=== PATIENT | female | born 1950 | race Caucasian/White ===

== ENCOUNTER 2017-01-13 09:29 | Outpatient (CLI) | payer MEDICARE, OTHER ==
--- NOTE | 2017-02-01 18:37 | MMO ---
BILATERAL SCREENING MAMMOGRAM: DATE: 01/13/2017 COMPARISON: No prior comparisons available. Interpreted as a baseline exam. The exam is interpreted with the assistance of computer-aided detection. FINDINGS: There is heterogeneously dense breast parenchyma bilaterally which limits sensitivity of mammography . There are benign-appearing calcifications bilaterally. No evidence of a dominant mass, suspiciou s clustering of microcalcifications, or architectural distortion. IMPRESSION: BIRADS 2 - Benign findings. Annual screening mammography recommended. POS: ARIEL
== END 2017-01-13 09:30 | disposition home or self-care (01) ==
LOC: MAMMO 09:29
PROVIDERS: ATTEND Family Medicine
DX: Z12.31 Encounter for screening mammogram for malignant neoplasm of breast (principal)
CPT/HCPCS: 77067; G0202

== ENCOUNTER 2017-02-14 22:24 | Inpatient (IN) | payer MEDICARE, OTHER ==
[2017-02-14] MEDS ORDERED: Pantoprazole 40 MG VIAL ONE ×2 (23:23→23:28)
[2017-02-14 23:31] LABS: #Basophils 0.1 thou/uL (0.0-0.2); #Eosinphils 0.2 thou/uL (0.0-0.7); #Lymphocytes 2.8 thou/uL (1.20-3.40); #Monocytes 0.9 thou/uL (0.11-0.59); #Neutrophils 7.6 thou/uL (1.40-6.50); %Basophils 0.8 % (0.0-1.0); %Eosinophils 1.6 % (0.0-10.0); %Lymphocytes 24.5 % (21.0-51.0); %Monocytes 7.6 % (0.0-10.0); Hematocrit 41.2 % (36.0-47.0); Mean Platelet Volume 7.2 fL (7.4-10.4); Red Blood Cell (RBC) Count 4.23 mill/uL (4.20-5.40); White Blood Cell (WBC) Count 11.6 thou/uL (4.8-10.8)
[2017-02-14 23:37] LABS: PTT 27.1 SEC (22.9-36.1); Prothrombin Time 14.1 SEC (12.0-14.7)
[2017-02-14 23:38] LABS: Anion Gap 9 mmol/L (-14-95); Lactate 2.07 mmol/L (0.50-2.20); POC Est. GFR-MDRD-African-Amer Greater than 60 (2-60); POC Estimated GFR-MDRD Greater than 60 (2-60); T. Carbon Dioxide 26.7 mmol/L (1.0-85.0); pH (Venous) 7.517 (7.35-7.45); vO2 Saturation-calc 99.4 % (0.0-100.0)
[2017-02-14] MEDS ORDERED: Pantoprazole 80 MG, Admixture Fee 1 EACH in Sodium Chloride 0.9% 100 ML IVP SCH (23:45)
[2017-02-14 23:54] LABS: ALT (SGPT) 22 U/L (8-55); AST (SGOT) 21 U/L (5-34); Alkaline Phosphatase 79 U/L (40-150); Anion Gap 14 mmol/L (10-20); BUN (Urea Nitrogen) 54 mg/dL (9.8-20.1); Bilirubin, Total 0.5 mg/dL (0.2-1.2); CK (CPK) 53 U/L (29-168); Calc. Creatinine Clearance 0 mL/min (70-130); Calcium 8.9 mg/dL (7.8-10.44); Carbon Dioxide 24 mmol/L (23-31); Chloride 104 mmol/L (98-107); Estimated GFR-MDRD 73; Lipase 12 U/L (8-78); Protein, Total 5.6 g/dL (6.0-8.3)
[2017-02-14 23:58] LABS: Troponin I Less than 0.010 ng/mL (< 0.028)
--- NOTE | 2017-02-15 02:05 | HP ---
PRIMARY CARE PHYSICIAN: Derek Yee M.D. CHIEF COMPLAINT: Black stool and near syncope. HISTORY OF PRESENT ILLNESS: This is a 66-year-old female patient with a history of polycythemia vera, hypertension, history of gastric ulcer 9-10 years ago, who presented to the emergency department tonight with complaints of one episode of severe dark black stool and near syncope in the ER as well as episode of hypotension down to 60 systolic in the emergency department. The patient states that she has been in her usual state of health until this evening when she had the episode of dark black stool. She admitted to some lightheadedness, but she has been feeling more anxious. She states that she has had on and off episodes of shortness of breath for the past several months, but definitely felt worse tonight. She called the answering service and she was instructed to go to the emergency department for evaluation. In the ER during her evaluation, she was found initially to be severely hypotensive. She had an episode, where her blood pressure dropped again to 60. She was given a liter of fluids emergently, which brought her blood pressure back up to the normal range. GI was consulted, notified and now, she is being admitted for further evaluation and treatment. PAST MEDICAL HISTORY: Hypertension, polycythemia vera, history of GI bleed 9- 10 years ago requiring gastric surgery. She is unsure what type of surgery was performed. MEDICATIONS: Include atenolol and hydrochlorothiazide, hydroxyurea 500mg ALLERGIES: PENICILLIN and SULFA. PAST SURGICAL HISTORY: Gastric ulcer repair, hysterectomy. FAMILY HISTORY: Mother with Parkinson disease and father with heart disease and possible aneurysm. SOCIAL HISTORY: She is with children. She sells cosmetics for living. No smoking, no alcohol. Rare caffeine. She states that she stopped all anti- inflammatories 9-10 years ago when she had the gastric ulcer in the past. REVIEW OF SYSTEMS: As per the history of present illness. General: She denies any recent fevers, chills, or recent illness. HEENT: Denies headache, visual or hearing changes. Cardiac: Denies chest pain, shortness of breath or palpitations. Pulmonary: Denies cough or hemoptysis. Gastrointestinal: As per the history of present illness. She does have some abdominal pain, but minimum. Genitourinary: Denies dysuria or hematuria. Neurologic: No weakness. She did have a near syncopal episode here in the ER, but did not pass out. No seizures. Musculoskeletal: Denies joint pain. PHYSICAL EXAMINATION: VITAL SIGNS: She is afebrile, heart rate 80-90, blood pressure is now 130s over 70-80, have had an episode where she was in the 60s/40s, respirations 18 and comfortable. GENERAL: She is awake and alert. She is anxious and pale but in no acute distress. She does have noticeable smell of melena.Mucosa is moist. NECK: Supple. HEART: Regular rate and rhythm. LUNGS: Clear. ABDOMEN: Soft, nontender, nondistended. NEUROLOGIC: CN 2-12 are intact, she moves all extremities. No focal deficits. EXTREMITIES: With no edema. LABORATORY AND X-RAY FINDINGS: White blood cell count 71879, hemoglobin and hematocrit 13.5 and 41.2, but her baseline is 16-20 in her hemoglobin, and 50- 62 in her hematocrit, platelets are 498, PT, PTT 14 and 27.1. ABG with pH of 7.517, pCO2 of 31.7, pO2 of 134. Sodium 138, potassium 4.4, chloride 104, CO2 of 24, BUN and creatinine 54 and 0.79. Serum glucose of 122, albumin of 3.6. ASSESSMENT AND PLAN: This is a 66-year-old female patient with a history of polycythemia vera, hypertension, and passes remote history of gastric ulcer requiring as surgical repair 9-10 years ago, now presents with symptoms consistent with the upper GI bleed with melena and hypotension. She was resuscitated in the emergency room and is stable at this point. She is being admitted to intensive care unit for further monitoring. 1. Upper gastrointestinal bleed. Dr. Ann is aware of the patient here and we will decide on further course of action, a possible esophagogastroduodenoscopy later this morning. 2. Hypotension. We will continue to support with intravenous fluids and monitor closely. 3. Polycythemia vera. We will monitor her hemoglobin and hematocrit every 2 hours through the night. 4. Gastrointestinal protection with Protonix IV 40 mg b.i.d. 5. Patient and son are explained the seriousness of the situation and they are aware. [facility]
[2017-02-15 02:48] LABS: Hematocrit 36.3 % (36.0-47.0)
[2017-02-15 03:28] LABS: #Basophils 0.1 thou/uL (0.0-0.2); #Eosinphils 0.1 thou/uL (0.0-0.7); #Lymphocytes 1.7 thou/uL (1.20-3.40); #Monocytes 0.5 thou/uL (0.11-0.59); #Neutrophils 11.5 thou/uL (1.40-6.50); %Basophils 0.6 % (0.0-1.0); %Eosinophils 0.7 % (0.0-10.0); %Lymphocytes 11.9 % (21.0-51.0); %Monocytes 3.6 % (0.0-10.0); Mean Platelet Volume 7.3 fL (7.4-10.4); White Blood Cell (WBC) Count 13.9 thou/uL (4.8-10.8)
[2017-02-15 03:45] LABS: ALT (SGPT) 18 U/L (8-55); AST (SGOT) 18 U/L (5-34); Alkaline Phosphatase 71 U/L (40-150); Anion Gap 12 mmol/L (10-20); BUN (Urea Nitrogen) 50 mg/dL (9.8-20.1); Bilirubin, Total 0.6 mg/dL (0.2-1.2); Calc. Creatinine Clearance 0 mL/min (70-130); Calcium 7.8 mg/dL (7.8-10.44); Carbon Dioxide 21 mmol/L (23-31); Chloride 108 mmol/L (98-107); Estimated GFR-MDRD 86; Globulin 1.9 g/dL (2.4-3.5); Protein, Total 5.1 g/dL (6.0-8.3)
[2017-02-15] MEDS: Sodium Chloride 0.9% 1,000 ML IV SCH ×3 (04:13→18:11)
[2017-02-15 04:21] VITALS: BMI 25.4
[2017-02-15] MEDS ORDERED: Fentanyl 100 MCG/2 ML VIAL ONE (08:42)
[2017-02-15] MEDS ORDERED: Propofol 200 MG/20 ML VIAL ONE (08:50)
[2017-02-15] MEDS ORDERED: Lidocaine 1% PF 5 ML VIAL ONE (08:50)
[2017-02-15] MEDS ORDERED: FLU VACC TS2017-18 (>65YR) 0.5 ML SYRINGE IM ONE (09:00)
[2017-02-15] MEDS: Pantoprazole 40 MG VIAL IVP SCH ×2 (09:29→21:13)
[2017-02-15 09:39] LABS: Hematocrit 32.6 % (36.0-47.0)
[2017-02-15] MEDS: Ondansetron HCl/PF 4 MG/2 ML Vial IVP PRN (10:16)
--- NOTE | 2017-02-15 10:26 | CON ---
DATE OF CONSULTATION: 02/15/2017 HISTORY OF PRESENT ILLNESS: Ms. Lee is a 66-year-old female who was admitted last night for suspe cted GI bleed. She reports around 5 yesterday she was at work and had a bowel movement which was me lenic. She subsequently had 5 to 6 dark black stools. She came to the emergency room around 10:30. There she described having problems with a syncopal episode at home. She denied any abdominal renzo n. She was admitted to the ICU. Her last bowel movement was a little bit maroon, was about 150 mL per the nurse. The patient denies any abdominal pain. She reports several years ago she presented with severe abdominal pain and was found to have a perforated ulcer. This was reportedly related to ibuprofen which she took for right knee pain from a meniscus injury. Presently she takes ibuprofen periodically, but not on a regular basis. She is also on hydroxyurea for polycythemia vera, atenol ol for hypertension, hydrochlorothiazide for hypertension. On arrival to the hospital her blood pre ssure is 110/69, pulse was 72, it dropped to 63/41, pulse of 76. She responded to a fluid bolus. H er hemoglobin on presentation was 13.5; however, her baseline is about 16, last checked on 7. She dropped to 11.9 this morning. She feels well. Denies any chest pain or shortness of breath . She has been started on a Protonix drip. PAST MEDICAL HISTORY: Polycythemia vera, hypertension. PAST SURGICAL HISTORY: Surgery for perforated ulcer in the upper GI tract and hysterectomy. ALLERGIES: PENICILLIN, SULFA. HOME MEDICATIONS: Atenolol, hydrochlorothiazide, hydroxyurea. Presently she is on Protonix drip. FAMILY HISTORY: Mother with Parkinson's. Father with heart disease and possible aneurysm. SOCIAL HISTORY: She is . She drinks. She sells cosmetics for a living. REVIEW OF SYSTEMS: The patient notes she had colorectal cancer screening recently with [facility] ma. She denies any family history of GI malignancies. She has no chest pain, shortness of breath, dyspnea on exertion. She had no dysphagia, odynophagia or bright red blood per rectum in the past. PHYSICAL EXAMINATION: VITAL SIGNS: Temperature is 98, pulse 59, blood pressure 97/72 to 120/72. LUNGS: Clear. CARDIOVASCULAR: Heart regular rate and rhythm without clicks or murmurs. ABDOMEN: Soft, nontender, without any palpable hepatosplenomegaly. There is a well healed midline scar in the upper abdomen below the umbilicus. There are no hernias. EXTREMITIES: Reveal no clubbing, cyanosis or edema. LABORATORY AND X-RAY FINDINGS: White count 13.9, hemoglobin 11.9, platelet count 418. INR 1.1. So dium 136, potassium 4, BUN and creatinine are 50 and 0.68, this is up from baseline of 22 and 0.76 o n 10/30/2016. Liver function tests are normal, albumin 3.2. ASSESSMENT: Upper gastrointestinal bleed with prior history of perforated ulcer in 2006, at which t ramiro she truncal vagotomy, pyloroplasty with closure of her ulcer. PLAN: Continue IV Protonix drip, type and screen. EGD this morning.
[2017-02-15] MEDS ORDERED: Cepastat Lozenges 1 LOZ PO PRN (10:44)
--- NOTE | 2017-02-15 11:37 | OP ---
DATE OF PROCEDURE: 02/15/2017 SURGEON: Forrest Ann M.D. PREOPERATIVE DIAGNOSES: 1. Gastrointestinal bleed with melena, drop in hemoglobin from baseline around 16 with polycythemia vera down to 11.9, a presyncopal episode at home. 2. Elevation of BUN on admission, 50 with normal creatinine suggestive of reabsorption of blood fro m the GI tract from the small bowel suggestive of upper gastrointestinal bleeding. 3. Prior history of ulcer requiring surgery. 4. History of regular NSAID use. POSTPROCEDURE DIAGNOSES: 1. Normal esophagus. 2. Normal stomach on forward and retroflexed views with no signs of recent bleeding or ulcers. 3. Deformed pylorus consistent with previous history of pyloroplasty with no evidence of ulcers, er osions or blood. 4. Normal duodenum to the third portion with clean bile and no stigmata of bleeding or recent bleed ing. RECOMMENDATIONS: 1. Stat tagged red blood cell scan. If this is negative colonoscopy tomorrow. 2. Keep in IMU. 3. To large bore IVs at all times. 4. Type and cross at all times. 5. Transfuse as necessary. 6. Discontinue Protonix drip. ANESTHESIA: TIVA. PROCEDURE IN DETAIL: After the patient was informed of the risks, benefits, possible complications of endoscopy including perforation, bleeding, reactions to medication and aspiration, informed conse nt was obtained. The patient brought to endoscopy suite where she was sedated in gradual fashion. Once she was comfortable, a bite block was placed in incisural orifice. The endoscope was advanced through the esophagus, stomach, second and third portion of duodenum and slowly removed. The esopha thien, stomach, and duodenum were normal except for changes of previous pyloroplasty. There was no ev idence of ulcers, erosions or bleeding sites in the duodenum, there was clear yellow bile in the duo denal bulb and second and third portion of duodenum. Retroflexed views in the stomach were normal. The scope was removed. The patient tolerated the procedure well without complications.
[2017-02-15 14:56] LABS: Hematocrit 35.5 % (36.0-47.0)
--- NOTE | 2017-02-15 15:32 | PRG ---
DATE OF SERVICE: 02/15/2017 TIME: 08:15 A.M. SUBJECTIVE: The patient reports she is feeling better than admission with minimal nausea and no abd ominal pain. She continues to have dark stool and was seen by GI and anesthesia this morning in pre paration for an upper endoscopy. OBJECTIVE: VITAL SIGNS: Temperature 98.6, pulse 59, respirations 16, O2 sat 98% on room air, and blood pressur e 97/62. GENERAL: This is a well-developed, well-nourished female in no apparent distress. HEENT: Exam is unremarkable. HEART: Regular rate and rhythm with no murmurs. LUNGS: Clear to auscultation bilaterally. ABDOMEN: Soft, nontender with normoactive bowel sounds. EXTREMITIES: Show no clubbing, cyanosis, or edema. NEUROLOGIC: Exam is nonfocal. LABORATORY DATA: Remarkable for hemoglobin of 11.9, this is down from 13.5 on admission. ASSESSMENT AND PLAN: This is a 66-year-old female presenting with what appears to be an upper gastr ointestinal bleed. She has not had any hematemesis. However, she has had dark tarry stools and a n ear syncopal episode. 1. She was admitted overnight to the ICU for close observation. 2. Gastrointestinal is going to take her down for an esophagogastroduodenoscopy today. We will erick it those results and plan will be contingent on what they find. 3. Hemoglobin appears to be stable at this time and she is asymptomatic from an anemia standpoint. 4. Continue IV Protonix. 5. Appreciate gastrointestinal input. 6. Disposition dependent on what is found on esophagogastroduodenoscopy.
--- NOTE | 2017-02-15 16:46 | NM ---
NUCLEAR MEDICINE GI BLEEDING SCAN: 02/15/17 HISTORY: 66-year-old female with lower GI bleeding. TECHNIQUE: IV injection of 27 millicuries of technetium 99m - tagged erythrocytes. Anterior dynamic scintigraphy performed for a total of 91 minutes. Cine loop visualized on workstation. FINDINGS: There is no evidence of active gastrointestinal bleeding. IMPRESSION: Negative. POS: LACEY
[2017-02-15] MEDS ORDERED: GoLYTELY 4,000 ml Bottle PO SCH (17:30)
[2017-02-16 05:16] LABS: #Eosinphils 0.2 thou/uL (0.0-0.7); #Lymphocytes 1.7 thou/uL (1.20-3.40); #Monocytes 0.5 thou/uL (0.11-0.59); #Neutrophils 4.7 thou/uL (1.40-6.50); %Basophils 0.3 % (0.0-1.0); %Eosinophils 3.3 % (0.0-10.0); %Lymphocytes 23.8 % (21.0-51.0); %Monocytes 6.5 % (0.0-10.0); Hematocrit 27.8 % (36.0-47.0); Mean Platelet Volume 6.7 fL (7.4-10.4); Red Blood Cell (RBC) Count 2.84 mill/uL (4.20-5.40); White Blood Cell (WBC) Count 7.2 thou/uL (4.8-10.8)
[2017-02-16] MEDS: Sodium Chloride 0.9% 1,000 ML IV SCH ×2 (07:38→10:23)
[2017-02-16] MEDS: Ondansetron HCl/PF 4 MG/2 ML Vial IVP PRN (07:42)
[2017-02-16 09:25] LABS: Hematocrit 30.7 % (36.0-47.0)
[2017-02-16] MEDS: Pantoprazole 40 MG VIAL IVP SCH (10:29)
[2017-02-16] MEDS ORDERED: ePHEDrine/0.9% NaCl/PF SYRINGE 50 mg/10 ml ONE (12:19)
[2017-02-16] MEDS ORDERED: Propofol 200 MG/20 ML VIAL ONE (12:19)
[2017-02-16 15:30] LABS: Hematocrit 31.9 % (36.0-47.0)
[2017-02-16] MEDS: Acetaminophen 500 MG TAB PO PRN (18:41)
--- NOTE | 2017-02-16 20:47 | OP ---
PREOPERATIVE DIAGNOSES: 1. Gastrointestinal bleed with elevated BUN yesterday and some black stools, which became more torey on. Concern was initially for upper gastrointestinal bleeding; however, esophagogastroduodenoscopy was negative except for postoperative changes from previous repair of duodenal ulcer. 2. Tagged red blood cell scan yesterday normal. 3. Stable hemoglobin. No further bleeding. POSTOPERATIVE DIAGNOSIS: Normal colonoscopy including terminal ileum. RECOMMENDATIONS: P.o. PPI, advance diet. If patient is showing signs of recurrent bleeding, we jazlyn l repeat tagged red blood cell scan. The patient PPI tomorrow and avoid all NSAIDs and plan for capsule endoscopy of the small glo l as an outpatient. ANESTHESIA: TIVA. PROCEDURE IN DETAIL: After the patient was informed of the risks, benefits, possible complications of endoscopy including perforation, bleeding, reactions to medication and aspiration, informed conse nt was obtained. The patient brought to endoscopy suite where she was sedated in gradual fashion. Once she was comfortable, a rectal exam was performed. The endoscope was advanced through anal jitendra l through the colon. The cecum was identified by the appendiceal orifice and the ileocecal valve. The terminal ileum was entered and found to be normal. There was no blood coming from above. There was clear yellow bile. The colon was normal without any overt diverticulosis, polyps or masses, or AVMs seen. Retroflexed views in the rectum were normal. The scope was removed. The patient was b rought to the recovery room in stable condition. Findings were discussed with patient and the patient's son.
[2017-02-17 04:16] LABS: Hematocrit 27.1 % (36.0-47.0)
[2017-02-17 08:16] VITALS: BP 126/77; TEMP 98
[2017-02-17] MEDS: Acetaminophen 500 MG TAB PO PRN (08:20)
--- NOTE | 2017-02-18 05:40 | PRG ---
DATE OF SERVICE: 02/17/2017 SUBJECTIVE: Ms. Lee has done well. She had her first bowel movement today but it was brown. It is no longer black and tarry. She feels low. Temperature is 98, pulse 92, blood pressure 126/77. She has been walking around the nursing station without any difficulty. She has mild shortness of b reath. No dizziness or syncope. OBJECTIVE: HEENT: Conjunctivae and sclerae are clear. ABDOMEN: Soft, nontender. LABORATORY DATA: Hemoglobin is 9.1, it was 9.3 on 01/17/2017 morning and essentially stable. ASSESSMENT: Obscured gastrointestinal bleed. RECOMMENDATIONS: She has had no signs of bleeding in 72 hours and stable hemoglobin. She has negat diego upper and lower endoscopy except for postoperative changes in the bulb of the duodenum. We will discharge her home on a PPI. I will set up outpatient capsule endoscopy of the small bowel. I jazlyn l hold all nonsteroidal anti-inflammatories. She can resume her home lysine, magnesium, and hydroch lorothiazide. We are going to hold the atenolol for a few days and we are going to hold her hydroxy urea for a few days. We will get her set up for an outpatient capsule endoscopy of the small bowel. Bleeding precautions have been discussed with her and her family and signs to look for including d iaphoresis with associated diarrhea. If that were to occur, she is to come back right away. She is going to have a family member staying with her for the next couple of days. These issues, recommen dations, and the case were reviewed with the patient, her 2 sons, and [id number] who were in [facility].
--- NOTE | 2017-02-22 09:09 | PRG ---
DATE OF SERVICE: 02/16/2017 The patient was seen at approximately 8 in the morning. SUBJECTIVE: The patient denied any pain or additional dark black stool. She was feeling well at th e time of my exam. PHYSICAL EXAMINATION: VITAL SIGNS: Temperature 98.1, pulse 99, respirations 18, O2 sat 99% on room air, blood pressure 12 1/61. GENERAL: This is a well-developed, well-nourished female, in no apparent distress. HEENT: Exam is unremarkable. HEART: Regular rate and rhythm with no murmurs. LUNGS: Clear to auscultation bilaterally. ABDOMEN: Soft, nontender, nondistended with normoactive bowel sounds. EXTREMITIES: Show no clubbing, cyanosis, or edema. LABORATORY DATA: Notable for hemoglobin of 9.3. This is down from 11.7 the day before. ASSESSMENT AND PLAN: This is a 66-year-old female presenting with what appears to be an upper GI bl eed with melanotic stools. 1. Dr. Ann has been consulted. The patient was taken for an EGD. Next step in the plan is colo noscopy, and then if nothing is revealed there, possible small bowel capsule study. Clinically, she is stable and doing quite well. In fact, she is asymptomatic at this time. DISPOSITION: Will be per GI's recommendations.
--- NOTE | 2017-02-22 10:09 | DIS ---
DATE OF ADMISSION: 02/15/2017 DATE OF DISCHARGE: 02/17/2017 DISCHARGE DIAGNOSES: 1. Gastrointestinal bleed. 2. Anemia secondary to blood loss. 3. Near syncope. DISCHARGE MEDICATIONS: 1. Lysine 500 mg daily. 2. Magnesium 400 mg daily. 3. Protonix 40 mg daily. 4. Tylenol p.r.n. FOLLOWUP: The patient was advised to follow up with Dr. Ann in 1-2 days and with me in 1-2 weeks . BRIEF HOSPITAL COURSE: This is a 66-year-old female presenting what appeared to be an upper GI blee d. She underwent EGD and colonoscopy which did not show any evidence of active bleeding. She did s how evidence of repair of a prior duodenal ulcer in the remote past, but this appeared normal. Post operatively, her bleeding stopped. Her hemoglobin was stable. She was asymptomatic and was deemed stable for discharge home with her family members. She was to follow up with Dr. Ann in 1-2 days to arrange an outpatient small bowel capsule study. She was to follow up with me in 1-2 weeks just as a matter of routine.
== END 2017-02-17 18:38 | disposition home or self-care (01) | DRG 378 ==
LOC: ERS 22:24 → IMCU/EMU 02-15 01:35 → T4-B 02-16 17:02
PROVIDERS: ADMIT Family Medicine; ATTEND Family Medicine
PROC: 0DJ08ZZ Inspection of Upper Intestinal Tract, Via Natural or Artificial Opening Endoscopic (ICD-10-PCS; 2017-02-15)
PROC: 0DJD8ZZ Inspection of Lower Intestinal Tract, Via Natural or Artificial Opening Endoscopic (ICD-10-PCS; principal; 2017-02-17)
DX: K92.1 Melena (principal); D62 Acute posthemorrhagic anemia; I95.9 Hypotension, unspecified; I10 Essential (primary) hypertension; D45 Polycythemia vera; Z88.0 Allergy status to penicillin; Z88.2 Allergy status to sulfonamides; Z82.49 Family history of ischemic heart disease and other diseases of the circulatory system; Z82.0 Family history of epilepsy and other diseases of the nervous system
CPT/HCPCS: 36415; 78278; 80053; 82274; 82330; 82553; 82803; 83605; 83690; 84484; 85014; 85018; 85025; 85049; 85610; 85730; 86850; 86900; 86901; 93005; 96361; 96365; 96366; 96376; A4216; A9604; C9113; J2001; J2704; J3010; J7050

== ENCOUNTER 2018-01-14 10:56 | Outpatient (CLI) | payer MEDICARE, OTHER | END 2018-01-14 10:57 | disposition home or self-care (01) | LOC: BICMAMMO 10:56 | PROVIDERS: ATTEND Family Medicine | DX: Z12.31 Encounter for screening mammogram for malignant neoplasm of breast (principal); Z13.820 Encounter for screening for osteoporosis; M81.0 Age-related osteoporosis without current pathological fracture; Z78.0 Asymptomatic menopausal state | CPT/HCPCS: 77063; 77067; 77080 ==

== ENCOUNTER 2019-04-20 12:56 | Outpatient (CLI) | payer MEDICARE, OTHER ==
[2019-04-20 14:50] LABS: Bacteria/HPF None Seen HPF (None Seen); Bilirubin Negative (Negative); Blood, Urine Negative (Negative); Clarity Clear (Clear); Glucose, Urine (Dipstick) Normal (Negative); Leukocyte Negative Leu/uL (Negative); Nitrite Negative (Negative); Protein, Urine (Dipstick) Negative (Neg-Trace); RBC/HPF 0-3 HPF (0-3); Squamous Epithelial 0-3 HPF (0-3); Urobilinogen Normal mg/dL (Less than 2); WBC/HPF 0-3 HPF (0-3)
[2019-04-20 14:55] LABS: INR-International Normal Ratio 0.9; Prothrombin Time 12.3 SEC (12.0-14.7)
[2019-04-20 14:56] LABS: #Basophils 0.1 thou/uL (0.0-0.2); #Eosinphils 0.2 thou/uL (0.0-0.7); #Lymphocytes 1.9 thou/uL (1.20-3.40); #Monocytes 0.7 thou/uL (0.11-0.59); #Neutrophils 5.1 thou/uL (1.40-6.50); %Basophils 0.7 % (0.0-1.0); %Monocytes 8.7 % (0.0-10.0); %Neutrophils 64.5 % (42.0-75.0); Hemoglobin 13.4 g/dL (12.0-16.0); Mean Corpuscular HGB CONC 34.3 g/dL (32.0-36.0); Mean Corpuscular Hemoglobin 36.3 pg (27.0-31.0); Mean Platelet Volume 7.8 fL (7.4-10.4); PTT 29.8 SEC (22.9-36.1); Platelet Count 405 thou/uL (130-400); RBC Distribution Width 11.6 % (11.5-14.5); Red Blood Cell (RBC) Count 3.69 mill/uL (4.20-5.40); White Blood Cell (WBC) Count 7.8 thou/uL (4.8-10.8)
[2019-04-20 15:05] LABS: Anion Gap 13 mmol/L (10-20); BUN (Urea Nitrogen) 17 mg/dL (9.8-20.1); Calc. Creatinine Clearance 0 mL/min (70-130); Calcium 9.8 mg/dL (7.8-10.44); Carbon Dioxide 31 mmol/L (23-31); Chloride 104 mmol/L (98-107); Estimated GFR-MDRD 78; Glucose 85 mg/dL (80-115); Potassium 3.4 mmol/L (3.5-5.1); Sodium 145 mmol/L (136-145)
== END 2019-04-20 12:57 | disposition home or self-care (01) ==
LOC: LABBT 12:56
PROVIDERS: ATTEND Orthopaedic Surgery
DX: Z01.818 Encounter for other preprocedural examination (principal); M17.11 Unilateral primary osteoarthritis, right knee
CPT/HCPCS: 80048; 81001; 85025; 85610; 85730; 87081; 87086; 93005; 93010

== ENCOUNTER 2019-05-08 05:29 | Day surgery (SDC) | payer MEDICARE, OTHER ==
[2019-04-20 13:01] VITALS: BMI 21.9
--- NOTE | 2019-05-04 08:21 | HP ---
HISTORY OF PRESENT ILLNESS: The patient is a 68-year-old female, who has a greater than 1-year history of progressive problems with her right knee without specific injury. She has had progressive symptoms despite rest, restriction of activities, use of anti-inflammatory medication including Medrol Dosepak and a previous cortisone injection of her knee. The pain is now interfering with walking, getting dressed, and sleeping. She has not been able to tolerate NSAIDs due to GI upset. Her pain is now interfering with day-to-day activities. PAST MEDICAL HISTORY: The patient has history of hypertension and polycythemia vera, followed by Dr. Nancy Rincon. CURRENT MEDICATIONS: Include; 1. Tramadol. 2. Hydroxyurea. 3. Calcium. 4. Multivitamins. 5. Hydrochlorothiazide. ALLERGIES: SHE IS ALLERGIC TO PENICILLIN AND SULFA. FAMILY HISTORY: Otherwise, unremarkable. SOCIAL HISTORY: Otherwise, unremarkable. REVIEW OF SYSTEMS: Otherwise, unremarkable. PHYSICAL EXAMINATION: GENERAL: Reveals a healthy female. HEENT: Unremarkable. NECK: Supple. CHEST: Clear. HEART: Regular rate and rhythm. ABDOMEN: Soft nontender. PELVIC, RECTAL, AND BREASTS: Deferred. EXTREMITIES: Pertinent findings related to the right knee, there is puffiness. No definite effusion. There is mild varus deformity. There is tenderness and crepitus over the medial joint line. Range of motion is 0 to 135 degrees with 1+ valgus laxity at 30 degrees of flexion. Neurovascular exam is intact. Pulses are 2+. There is a slight right antalgic gait. DIAGNOSTIC STUDIES: X-rays of the right knee reveal [id number] collapse medially with progression from previous x-rays. IMPRESSION: 1. Degenerative arthritis, right knee. 2. History of polycythemia vera. 3. History of hypertension. PLAN: Right total knee replacement. The nature of the surgery, length of recovery, and potential complications such as infection, loss of motion, incomplete relief, thromboembolic phenomena, neurovascular injury, possible transfusion, and need for revision have been discussed in detail. Job ID: [id number]
[2019-05-08] MEDS ORDERED: Tranexamic Acid 1,000 MG/10 ML VIAL ONE ×2 (05:51→08:58)
[2019-05-08] MEDS ORDERED: Sodium Chloride 0.9% 100 ML ONE (05:51)
[2019-05-08] MEDS ORDERED: Vancomycin HCl 500 MG VIAL ONE (05:51)
[2019-05-08] MEDS ORDERED: Levofloxacin 500 mg/D5W 100 ml Premix Bag ONE (05:51)
[2019-05-08] MEDS ORDERED: Fentanyl 100 MCG/2 ML VIAL ONE ×3 (06:29→09:17)
[2019-05-08] MEDS ORDERED: Midazolam HCl 2 mg/2 ml Vial ONE (06:29)
[2019-05-08] MEDS ORDERED: Bupivacaine 0.25% HCL 30 ML VIAL ONE (06:38)
[2019-05-08] MEDS ORDERED: Scopolamine 1.5 mg/72 hour Patch ONE (07:03)
[2019-05-08] MEDS ORDERED: Famotidine/PF 20 mg/2ml Vial ONE (07:06)
[2019-05-08] MEDS ORDERED: Promethazine HCl 25 MG/ML VIAL IM PRN ×2 (07:22→08:00)
[2019-05-08] MEDS ORDERED: Fentanyl 100 MCG/2 ML VIAL SLOW IVP PRN ×3 (07:22→10:21)
[2019-05-08] MEDS ORDERED: Ondansetron PF 4 MG/2 ML Vial IVP PRN (07:22)
[2019-05-08] MEDS ORDERED: traMADol HCl 50 MG TAB PO PRN ×2 (07:22→10:21)
[2019-05-08] MEDS ORDERED: Zolpidem Tartrate 5 MG TAB PO PRN ×2 (07:22→10:21)
[2019-05-08] MEDS ORDERED: HYDROcodone/Acetaminophen 10/325 mg Tablet PO PRN ×3 (07:22→10:21)
[2019-05-08] MEDS ORDERED: Acetaminophen 325 MG TAB PO PRN (07:24)
[2019-05-08] MEDS ORDERED: Lidocaine 1% w/Epinephrine 1:100K 20 ML VIAL ONE (07:39)
[2019-05-08] MEDS ORDERED: Promethazine HCl 25 MG/ML VIAL SLOW IVP PRN ×2 (08:00→10:21)
[2019-05-08] MEDS ORDERED: PACU-Morphine 4MG/ML VIAL SLOW IVP PRN (08:00)
[2019-05-08] MEDS ORDERED: Tranexamic Acid 1,000 MG in Sodium Chloride 0.9% 100 ML IVPB SCH ×2 (09:00→10:21)
[2019-05-08] MEDS ORDERED: Promethazine HCl 25 MG/ML VIAL ONE (09:07)
--- NOTE | 2019-05-08 09:19 | RAD ---
Exam:2 views right knee HISTORY: Status post arthroplasty COMPARISON: None FINDINGS: Expected postoperative changes. Near anatomic alignment. IMPRESSION: Findings compatible with a right knee arthroplasty.
[2019-05-08] MEDS ORDERED: diphenhydrAMINE 25 MG CAP PO PRN (10:21)
[2019-05-08] MEDS ORDERED: Ondansetron PF 4 MG/2 ML Vial ONE (10:34)
[2019-05-08] MEDS ORDERED: PROPOFOL 200 MG/20 ML VIAL ONE (10:34)
[2019-05-08] MEDS ORDERED: Dexamethasone 20 MG/5 ML VIAL ONE (10:34)
[2019-05-08] MEDS ORDERED: ePHEDrine/0.9% NaCl/PF SYRINGE 50 mg/10 ml ONE (10:34)
[2019-05-08] MEDS ORDERED: Ropivacaine 0.5% HCl/PF (150 MG/30 ML VIAL) ONE (10:34)
[2019-05-08] MEDS ORDERED: Ropivacaine 0.2% HCl/PF (40 MG/20 ML VIAL) ONE (10:34)
[2019-05-08] MEDS ORDERED: Lidocaine 1% PF 5 ML VIAL ONE (10:34)
--- NOTE | 2019-05-08 10:43 | OP ---
DATE OF PROCEDURE: 05/08/2019 BUSINESS OBJECTS: Homa Stevens PA-C ANESTHESIA: General plus adductor canal and sciatic nerve blocks. PREOPERATIVE DIAGNOSIS: Degenerative arthritis, right knee. POSTOPERATIVE DIAGNOSIS: Degenerative arthritis, right knee. PROCEDURE PERFORMED: Right total knee replacement with computer-assisted navigation with cemented [employer] Triathlon components (#3 femoral component, #3 primary tibial baseplate with 11-mm CS plastic insert, and all-plastic A29 patellar component). DESCRIPTION OF PROCEDURE: After satisfactory anesthesia was induced in supine position, sequential compression devices were placed on the nonoperative leg throughout the procedure. The right leg was then prepped and draped in routine sterile fashion. The leg was elevated and exsanguinated with an Esmarch bandage and the tourniquet inflated to 250 mmHg. A gently curved medial parapatellar incision was made, carried down through the subcutaneous tissues and bleeding points were controlled with Bovie cautery. Medial parapatellar arthrotomy was performed. Patella was cleared laterally and portion of the fat pad were excised for exposure. There was marked degenerative arthritis of the knee especially medially with large areas of exposed bone. Meniscal remnants and osteophytes were removed. Using the [employer] pinless navigation system and the appropriate guides, the distal femoral and proximal tibial articular surfaces were excised with an oscillating saw to accept the trial components. It was felt that #3 femoral component, #3 tibial baseplate with an 11-mm CS plastic insert gave appropriate size, fit, stability, and correction of the preoperative deformity. The patellar articular surface was excised to accept an all-plastic A29 patellar component. There was good range of motion and good patellar tracking. The trial components were removed. The knee was copiously irrigated with pulsatile lavage and the bony surfaces were thoroughly cleaned and dried. The permanent components were then cemented in a single stage using one pack of cement premixed with 1 g of tobramycin powder. Excess cement was removed. There was again good fit and stability of the components. The knee was again copiously irrigated. The medial retinaculum and quadriceps mechanism was closed with interrupted #2 Vicryl and a running #2 Quill. Subcutaneous tissues were closed with a running 0 Quill suture and the skin closed with running subcuticular 3-0 Monoderm and SurgiSeal skin adhesive. A sterile bulky compressive dressing was applied and the tourniquet deflated after 66 minutes. The foot promptly pinked up. Sequential compression device was applied to the operated leg and she was awakened and taken to the recovery room in stable condition. There were no apparent intraoperative complications. The estimated blood loss was less than 100 mL. Job ID: [id number]
[2019-05-08] MEDS: Ketorolac Tromethamine 30 MG/ML VIAL IVP SCH ×2 (11:05→17:00)
[2019-05-08] MEDS: Sodium Chloride 0.9% 1,000 ML IV SCH ×2 (11:11→20:38)
--- NOTE | 2019-05-08 13:35 | PDOC.HOSPP ---
- Subjective Encounter Date: 05/08/19 Encounter Time: 13:00 Subjective: no sob, was nauseous earlier son at bedside no chest pain or palp - Objective Vital Signs & Weight: Vital Signs (12 hours) Temp Pulse Resp BP Pulse Ox 05/08/19 12:00 99 05/08/19 10:00 96.8 F L 89 16 148/76 H 99 Weight Weight 120 lb I&O: 05/07/19 05/08/19 05/09/19 06:59 06:59 06:59 Intake Total 0 Output Total 0 Balance 0 Hospitalist ROS - Medication Medications: Active Medications Generic Name Dose Route Start Last Admin Trade Name Freq PRN Reason Stop Dose Admin Sodium Chloride 1,000 mls @ 100 mls/hr 05/08/19 10:21 05/08/19 11:11 Normal Saline 0.9% IV Not Given .Q10H JOSE L Ketorolac Tromethamine 15 mg 05/08/19 12:00 05/08/19 11:05 Toradol IVP 05/10/19 12:01 15 mg Q6HR JOSE L Administration - Exam General Appearance: NAD Eye: PERRL, anicteric sclera ENT: no oropharyngeal lesions, dry oral mucosa Neck: supple, no JVD Heart: RRR, no murmur Respiratory: no wheezes, no rales Gastrointestinal: soft, non-tender, non-distended, normal bowel sounds Extremities: no cyanosis, no edema Extremities - other findings: right knee in dressing Neurological: cranial nerve grossly intact, no focal deficits Hosp A/P (1) Status post total knee replacement, right Code(s): Z96.651 - PRESENCE OF RIGHT ARTIFICIAL KNEE JOINT Status: Acute (2) Polycythemia vera Code(s): D45 - POLYCYTHEMIA VERA Status: Chronic (3) Dyslipidemia Code(s): E78.5 - HYPERLIPIDEMIA, UNSPECIFIED Status: Chronic (4) HTN (hypertension) Code(s): I10 - ESSENTIAL (PRIMARY) HYPERTENSION Status: Chronic Qualifiers: Hypertension type: essential hypertension Qualified Code(s): I10 - Essential (primary) hypertension - Plan cbc, cmp in am, continue iv hydration, asp bid, fentanyl, ropivacaine nr block continue hydroxyurea on M// schedule as before, she sees Nancy Rincon for Polycythemia vera rbc indices were with in normal limits on preop cbc, rbc 3.69, h/h 13/39 continue crestor low dose, hold hctz for now will f/u hemostable to participate with PT/OT post op per ortho adv
[2019-05-08] MEDS: Hydroxyurea 500 MG CAP PO SCH (14:23)
[2019-05-08] MEDS ORDERED: Vancomycin HCl 1 GM in Premix Bag 1 BAG IVPB SCH (18:00)
[2019-05-08] MEDS: Cepastat Lozenges 1 LOZ PO PRN (20:37)
[2019-05-08] MEDS: Senokot S 8.6-50 MG TAB PO SCH (20:37)
[2019-05-08] MEDS: Aspirin 81 mg Enteric Coated Tablet PO SCH (20:37)
[2019-05-08] MEDS: Ropivacaine HCl/PF 250 ML in Premix Bag 1 BAG NERVE BLCK SCH (20:38)
[2019-05-08] MEDS ORDERED: Hydroxyurea 500 MG CAP PO SCH (21:00)
[2019-05-09] MEDS: Ketorolac Tromethamine 30 MG/ML VIAL IVP SCH ×2 (00:47→05:21)
[2019-05-09] MEDS: Sodium Chloride 0.9% 1,000 ML IV SCH ×2 (00:48→15:04)
[2019-05-09 05:20] LABS: #Lymphocytes 1.4 thou/uL (1.20-3.40); #Monocytes 0.7 thou/uL (0.11-0.59); #Neutrophils 7.1 thou/uL (1.40-6.50); %Basophils 0.1 % (0.0-1.0); %Eosinophils 0.5 % (0.0-10.0); %Lymphocytes 14.7 % (21.0-51.0); %Monocytes 7.5 % (0.0-10.0); %Neutrophils 77.1 % (42.0-75.0); Hemoglobin 10.5 g/dL (12.0-16.0); Mean Corpuscular HGB CONC 35.3 g/dL (32.0-36.0); Mean Corpuscular Hemoglobin 37.3 pg (27.0-31.0); Mean Platelet Volume 7.5 fL (7.4-10.4); Platelet Count 347 thou/uL (130-400); RBC Distribution Width 11.5 % (11.5-14.5); Red Blood Cell (RBC) Count 2.82 mill/uL (4.20-5.40); White Blood Cell (WBC) Count 9.2 thou/uL (4.8-10.8)
[2019-05-09] MEDS: Ondansetron PF 4 MG/2 ML Vial IVP PRN ×2 (05:24→20:04)
[2019-05-09 05:45] LABS: ALT (SGPT) 24 U/L (8-55); AST (SGOT) 32 U/L (5-34); Albumin 3.2 g/dL (3.4-4.8); Alkaline Phosphatase 54 U/L (40-110); Anion Gap 9 mmol/L (10-20); BUN (Urea Nitrogen) 13 mg/dL (9.8-20.1); Bilirubin, Total 0.5 mg/dL (0.2-1.2); Calc. Creatinine Clearance 69 mL/min (70-130); Calcium 7.9 mg/dL (7.8-10.44); Carbon Dioxide 26 mmol/L (23-31); Chloride 111 mmol/L (98-107); Estimated GFR-MDRD 89; Globulin 1.9 g/dL (2.4-3.5); Glucose 95 mg/dL (80-115); Potassium 3.4 mmol/L (3.5-5.1); Protein, Total 5.1 g/dL (6.0-8.3); Sodium 143 mmol/L (136-145)
[2019-05-09] MEDS: Aspirin 81 mg Enteric Coated Tablet PO SCH ×2 (08:21→20:28)
[2019-05-09] MEDS: Senokot S 8.6-50 MG TAB PO SCH ×2 (08:21→20:28)
[2019-05-09] MEDS: Multivitamin W/ Minerals 1 TAB PO SCH (08:22)
[2019-05-09] MEDS: Rosuvastatin 5 MG TAB PO SCH (08:22)
[2019-05-09] MEDS ORDERED: Lysine 500 MG TAB PO SCH ×2 (09:00)
[2019-05-09] MEDS ORDERED: Potassium Chloride 20 MEQ TAB PO SCH (09:00)
[2019-05-09] MEDS ORDERED: Hydrochlorothiazide 25 MG TAB PO SCH (09:00)
[2019-05-09] MEDS ORDERED: Magnesium 2 GM/50 ML 2 GM in Premix Bag 1 BAG IVPB SCH (09:00)
[2019-05-09] MEDS ORDERED: Multivit, Therapeutic 1 TAB PO SCH (09:00)
[2019-05-09] MEDS: Cepastat Lozenges 1 LOZ PO PRN (09:47)
[2019-05-09] MEDS: Hydroxyurea 500 MG CAP PO SCH (12:34)
--- NOTE | 2019-05-09 13:53 | PRG ---
DATE OF SERVICE: 05/09/2019 SUBJECTIVE: Babs is a 68-year-old female, postop day 1 from right total knee arthroplasty. She is doing relatively well. Pain is controlled. OBJECTIVE: VITAL SIGNS: Temperature 98.4, pulse 72, respiratory rate 16, and blood pressure 104/69. NEUROLOGIC: She is alert and oriented to person, place, time, and situation. Responsive and appropriate with examiner. Grossly nonfocal. Her incision is clean. No strike through. She is neurovascularly intact in the right lower extremity. LABORATORY DATA: Hemoglobin and hematocrit 10.5 and 29.8. IMPRESSION: A 68-year-old female, postop day 1 with right total knee arthroplasty. PLAN: Continue current care. Consider discharge home tomorrow since the patient ambulated 300 feet. Job ID: [id number]
[2019-05-09] MEDS: traMADol HCl 50 MG TAB PO PRN ×2 (14:07→20:28)
[2019-05-09] MEDS: Acetaminophen 325 MG TAB PO PRN ×2 (14:12→20:29)
--- NOTE | 2019-05-09 21:47 | PDOC.HOSPP ---
- Subjective Encounter Date: 05/09/19 Encounter Time: 18:00 Subjective: Patient seen and examined for med mngt. Pain controlled. No new complaints. No overnight events - Objective Vital Signs & Weight: Vital Signs (12 hours) Temp Pulse Resp BP BP Pulse Ox 05/09/19 19:41 98.4 F 66 16 118/76 96 05/09/19 16:00 98 05/09/19 15:30 97.8 F 79 16 147/78 H 98 05/09/19 10:23 98.4 F 72 16 104/69 97 Weight Admit Weight 120 lb Weight 120 lb I&O: 05/08/19 05/09/19 05/10/19 06:59 06:59 06:59 Intake Total 2740 1200 Output Total 3875 Balance -1135 1200 Result Diagrams: 05/09/19 04:50 05/09/19 04:50 Hospitalist ROS - Review of Systems Respiratory: denies: cough, dry, shortness of breath, hemoptysis, SOB with excertion, pleuritic pain, sputum, wheezing, other Cardiovascular: denies: chest pain, palpitations, orthopnea, paroxysmal noc. dyspnea, edema, light headedness, other - Medication Medications: Active Medications Generic Name Dose Route Start Last Admin Trade Name Freq PRN Reason Stop Dose Admin Acetaminophen 650 mg 05/08/19 10:21 05/09/19 14:12 Tylenol PO 650 mg Q4H PRN Administration Headache/Fever or Pain Aspirin 81 mg 05/08/19 21:00 05/09/19 20:28 Ecotrin PO 81 mg BID JOSE L Administration Hydroxyurea 1,000 mg 05/08/19 13:45 05/09/19 12:34 Hydrea PO 1,000 mg Q2D JOSE L Administration Ropivacaine 250 ml/ Device 250 mls @ 10 mls/hr 05/08/19 07:22 05/08/19 20:38 NERVE BLCK 05/11/19 07:21 250 mls INF JOSE L Administration Sodium Chloride 1,000 mls @ 100 mls/hr 05/08/19 10:21 05/09/19 15:04 Normal Saline 0.9% IV Not Given .Q10H JOSE L Iron/Minerals/Multivitamins 1 tab 05/09/19 09:00 05/09/19 08:22 Theragran M PO 1 tab DAILY JOSE L Administration Ondansetron HCl 4 mg 05/08/19 10:21 05/09/19 20:04 Zofran IVP 4 mg Q6H PRN Administration Nausea/Vomiting Rosuvastatin Calcium 5 mg 05/09/19 09:00 05/09/19 08:22 Crestor PO 5 mg DAILY JOSE L Administration Senna/Docusate Sodium 2 tab 05/08/19 21:00 05/09/19 20:28 Senokot S PO 2 tab BID JOSE L Administration Throat Lozenges 1 tong 05/08/19 18:58 05/09/19 09:47 Cepastat Lozenges PO 1 tong PRN PRN Administration .SORE THROAT Tramadol HCl 50 mg 05/08/19 07:22 05/09/19 14:07 Ultram PO 50 mg Q6H PRN Administration Mild Pain (1-3) Tramadol HCl 100 mg 05/08/19 10:21 05/09/19 05:20 Ultram PO 100 mg Q6H PRN Administration Moderate Pain (4-6) - Exam General Appearance: NAD Heart: RRR, no gallops Respiratory: CTAB, no rales Gastrointestinal: soft, non-tender, normal bowel sounds Extremities: no edema Hosp A/P - Plan DVT proph w/SCDs HTN Dyslipidemia CKD 2 Hypokalemia Hypomagnesemia 1.6 Polycythemia vera PLAN: Replace Magnesium and Potassium Cont Crestor and HCTZ Repeat BMP after 1 week
[2019-05-09] MEDS: Ropivacaine HCl/PF 250 ML in Premix Bag 1 BAG NERVE BLCK SCH (22:30)
[2019-05-09] MEDS: Ketorolac Tromethamine 30 MG/ML VIAL IVP PRN ×2 (22:39→22:42)
[2019-05-10] MEDS: Sodium Chloride 0.9% 1,000 ML IV SCH (02:19)
[2019-05-10] MEDS: Senokot S 8.6-50 MG TAB PO SCH ×2 (02:20→08:46)
[2019-05-10] MEDS: Aspirin 81 mg Enteric Coated Tablet PO SCH ×2 (02:20→08:46)
[2019-05-10] MEDS: HYDROcodone/Acetaminophen 10/325 mg Tablet PO PRN ×3 (06:21→13:54)
[2019-05-10] MEDS: Multivitamin W/ Minerals 1 TAB PO SCH (08:46)
[2019-05-10] MEDS: Rosuvastatin 5 MG TAB PO SCH (08:46)
[2019-05-10 12:37] VITALS: BP 112/74; TEMP 98.9
[2019-05-11] MEDS ORDERED: Lysine 500 MG TAB PO SCH (09:00)
== END 2019-05-10 14:04 | disposition home or self-care (01) ==
LOC: SDC 05:29 → SJJU 11:18 → SDC 05-10 14:04
PROVIDERS: ATTEND Orthopaedic Surgery
PROC: 0SRC0J9 Replacement of Right Knee Joint with Synthetic Substitute, Cemented, Open Approach (ICD-10-PCS; principal; 2019-05-08)
PROC: 8E0YXBZ Computer Assisted Procedure of Lower Extremity (ICD-10-PCS; 2019-05-08)
DX: M17.11 Unilateral primary osteoarthritis, right knee (principal); E78.5 Hyperlipidemia, unspecified; I10 Essential (primary) hypertension; D45 Polycythemia vera; Z79.899 Other long term (current) drug therapy; Z88.0 Allergy status to penicillin; Z88.2 Allergy status to sulfonamides
CPT/HCPCS: 20985; 27447; 73560; 80053; 83735; 85025; 97116 ×3; 97139 ×3; 97150 ×2; 97530 ×2; 98961; C1713; C1776; J1100; J1885; J1956; J2001; J2250; J2405; J2550; J2704; J2795; J3010; J3370; J3475; J3490; S0020; S0028

== ENCOUNTER 2019-11-14 12:59 | Outpatient (CLI) | payer MEDICARE, OTHER ==
--- NOTE | 2019-11-14 14:11 | BD ---
DEXA BONE DENSITY STUDY: HISTORY: Postmenopausal. FINDINGS: Lumbar Spine: BMD (g/cm2) L1 0.659 T-Score: -3.0 L2 0.719 T-Score: -2.8 L3 0.730 T-Score: -3.2 L4 0.716 T-Score: -3.1 L1-L4 0.708 T-Score: -3.1 Femoral Neck: 0.629 T-Score: -2.0 Total Femur: 0.815 T-Score: -1.0 Impression: Osteoporosis of the lumbar spine and osteopenia of the left femoral neck. POS: DARSHAN
--- NOTE | 2019-11-14 14:36 | MMO ---
Bilateral MAMMO Bilat Screen [facility]. CLINICAL HISTORY: Patient is 69 years old and is seen for screening. The patient has no family history of breast cancer. The patient has no personal history of cancer. VIEWS: The views performed were: bilateral craniocaudal with tomosynthesis and bilateral mediolateral oblique with tomosynthesis. FILMS COMPARED: The present examination has been compared to a prior imaging study performed at [facility] on 01/14/2018. This study has been interpreted with the assistance of computer-aided detection. MAMMOGRAM FINDINGS: The breasts are heterogeneously dense, which could obscure a lesion on mammography. Benign calcifications are noted bilaterally. There are no suspicious masses, suspicious calcifications, or new areas of architectural distortion. IMPRESSION: THERE IS NO MAMMOGRAPHIC EVIDENCE OF MALIGNANCY. A ROUTINE FOLLOW-UP MAMMOGRAM IN 1 YEAR IS RECOMMENDED. THE RESULTS OF THIS EXAM WERE SENT TO THE PATIENT. ACR BI-RADS Category 2 - Benign finding MAMMOGRAPHY NOTE: 1. A negative mammogram report should not delay a biopsy if a dominant of clinically suspicious mass is present. 2. Approximately 10% to 15% of breast cancers are not detected by mammography. 3. Adenosis and dense breasts may obscure an underlying neoplasm. Reported by: IZZY DUARTE MD Electonically Signed: [id number]
== END 2019-11-14 13:00 | disposition home or self-care (01) ==
LOC: BICMAMMO 12:59
PROVIDERS: ATTEND Family Medicine
DX: Z12.31 Encounter for screening mammogram for malignant neoplasm of breast (principal); M81.0 Age-related osteoporosis without current pathological fracture
CPT/HCPCS: 77063; 77067; 77080

== ENCOUNTER 2020-04-06 00:13 | Inpatient (IN) | payer MEDICARE, OTHER ==
[2020-04-06 00:49] LABS: #Basophils 0.1 thou/uL (0.0-0.2); #Eosinphils 0.2 thou/uL (0.0-0.7); #Lymphocytes 1.6 thou/uL (1.20-3.40); #Monocytes 0.5 thou/uL (0.11-0.59); #Neutrophils 4.3 thou/uL (1.40-6.50); %Basophils 1.2 % (0.0-1.0); %Eosinophils 2.7 % (0.0-10.0); %Lymphocytes 23.7 % (21.0-51.0); %Monocytes 6.9 % (0.0-10.0); %Neutrophils 65.6 % (42.0-75.0); Hemoglobin 13.3 g/dL (12.0-16.0); Mean Platelet Volume 7.2 fL (7.4-10.4); Platelet Count 364 thou/uL (130-400); White Blood Cell (WBC) Count 6.6 thou/uL (4.8-10.8)
[2020-04-06 01:05] LABS: ALT (SGPT) 28 U/L (8-55); AST (SGOT) 30 U/L (5-34); Albumin 4.3 g/dL (3.4-4.8); Alkaline Phosphatase 65 U/L (40-110); Anion Gap 14 mmol/L (10-20); BUN (Urea Nitrogen) 27 mg/dL (9.8-20.1); Bilirubin, Total 0.3 mg/dL (0.2-1.2); Calc. Creatinine Clearance 0 mL/min (70-130); Calcium 9.3 mg/dL (7.8-10.44); Carbon Dioxide 29 mmol/L (23-31); Chloride 101 mmol/L (98-107); Globulin 2.6 g/dL (2.4-3.5); Glucose 147 mg/dL (80-115); Lipase 17 U/L (8-78); Potassium 3.3 mmol/L (3.5-5.1); Protein, Total 6.9 g/dL (6.0-8.3); Sodium 141 mmol/L (136-145)
[2020-04-06] MEDS ORDERED: Acetaminophen 500 MG TAB ONE (01:49)
[2020-04-06 02:07] LABS: Bacteria/HPF None Seen HPF (None Seen); Bilirubin Negative (Negative); Blood, Urine Negative (Negative); Clarity Clear (Clear); Glucose, Urine (Dipstick) Normal (Negative); Ketone, Urine Negative (Negative); Leukocyte 75 Leu/uL (Negative); Nitrite Negative (Negative); Protein, Urine (Dipstick) Negative (Neg-Trace); RBC/HPF 0-3 HPF (0-3); Specific Gravity, Urine 1.025 (1.002-1.036); Squamous Epithelial 0-3 HPF (0-3); Urobilinogen Normal mg/dL (Less than 2); WBC/HPF 0-3 HPF (0-3); pH, Urine 5.5 (5.0-9.0)
[2020-04-06] MEDS ORDERED: Morphine 4 MG/ML VIAL ONE (04:36)
[2020-04-06] MEDS ORDERED: Midazolam HCl 2 mg/2 ml Vial ONE (05:03)
[2020-04-06 06:42] VITALS: BMI 21.5
[2020-04-06] MEDS ORDERED: Sodium Chloride 0.9% 1,000 ML IV SCH (06:45)
--- NOTE | 2020-04-06 08:07 | CT ---
PRELIMINARY REPORT/DIRECT RADIOLOGY/EMERGENCY AFTER HOURS PROCEDURE: EXAM: CT Abdomen and Pelvis with Intravenous Contrast CLINICAL HISTORY: F70, PT REPORTING LOWER ABDOMINAL PAIN THAT BEGAN 2.5 HOURS AGO. PT REPORTS HX OF S TOMACH ULCERS. TECHNIQUE: Axial computed tomography images of the abdomen and pelvis with intravenous contrast. CONTRAST: With; ISOVUE 370,100mL COMPARISON: None provided. FINDINGS: LUNG BASES: No basilar airspace consolidation or pleural effusion. LIVER: Unremarkable. GALLBLADDER AND BILE DUCTS: Unremarkable. No calcified stone. No ductal dilation. PANCREAS: Unremarkable. SPLEEN: Unremarkable. ADRENAL GLANDS: Unremarkable. KIDNEYS, URETERS, AND BLADDER: Unremarkable. No hydronephrosis or nephrolithiasis. No ureteral or imani dder calculi. STOMACH AND BOWEL: There is abnormal fluid distention of a region of small bowel without intraluminal oral contrast, with associated mesenteric fat stranding, interloop fluid, and transitional zones proximally and distally. Findings suggest a [id number] mechanical small bowel obstruction. APPENDIX: No CT evidence for appendicitis. PERITONEUM: No free fluid. No free air. REPRODUCTIVE: Unremarkable as visualized. VASCULATURE: No aortic aneurysm. BONES: No fracture or suspicious osseous abnormality. ABDOMINAL WALL AND SOFT TISSUES: Unremarkable. IMPRESSION: There is abnormal fluid distention of a region of small bowel without intraluminal oral contrast, with associated mesenteric fat stranding, interloop fluid, and transitional zones proximally and distally. Findings suggest a [id number] mechanical small bowel obstruction. ELECTRONICALLY SIGNED BY: Chung Escudero MD Apr 06, 2020 3:05:58 AM [employer]OC[employer] FINAL REPORT ABDOMEN AND PELVIC CT SCAN WITH CONTRAST: EMERGENCY AFTER HOURS EXAM TIME: 2:42 AM. DATE: 04/06/2020. This a final report Abnormal dilated small bowel in the mid and lower abdomen and pelvis with some edema and minimal flui d within the mesentery between the dilated loops with nondilated distal small bowel. Findings are certainly concerning for closed loop-type small bowel obstruction. This report agrees with the preliminary report. Transcribed Date/Time: 04/06/2020 8:26 AM
[2020-04-06] MEDS ORDERED: Sodium Chloride 0.65% Nasal 44 ML BOT EA NARE PRN (08:15)
[2020-04-06] MEDS ORDERED: Cepastat Lozenges 1 LOZ PO PRN (08:15)
[2020-04-06] MEDS ORDERED: Acetaminophen 325 MG TAB PO PRN (08:15)
[2020-04-06] MEDS ORDERED: hydrALAZINE 20 MG/ML VIAL SLOW IVP PRN (08:15)
[2020-04-06] MEDS ORDERED: Acetaminophen 650 MG Suppository PR PRN (08:15)
[2020-04-06] MEDS ORDERED: Labetalol HCl 100 MG/20 ML VIAL SLOW IVP PRN (08:15)
[2020-04-06] MEDS ORDERED: Ondansetron ODT 4 MG TAB SL PRN (08:15)
[2020-04-06] MEDS: Enoxaparin Sodium 40 MG/0.4 ML SYRINGE SC SCH (08:51)
[2020-04-06] MEDS: Morphine 2 MG/ML VIAL SLOW IVP PRN ×2 (08:52→18:28)
[2020-04-06] MEDS: Famotidine/PF 20 mg/2ml Vial SLOW IVP SCH (08:52)
[2020-04-06] MEDS: Ondansetron PF 4 MG/2 ML Vial IVP PRN ×2 (08:52→14:51)
--- NOTE | 2020-04-06 09:33 | PDOC.HHP ---
Hospitalist HPI - History of Present Illness abdominal pain History of Present Illness: Patient is a 69 year old female with a PMHx of HTN, HLD, PUD, and polycythemia vera who presents for evaluation of acute onset lower abdominal pain. Patient reports that yesterday, she ate dinner and afterwards developed some lower abdominal pain with radiation into her low back with associated nausea and vomiting. She had a small bowel movement, but this was loose. She tried taking Tylenol, but this did not improve her pain. Around 1AM last night, she came to the ED due to persistent abdominal pain. Pain was rated at 6/10 last night, and now 4/10. Denies any fever, chills, recent weight loss, bloody stool, bridgett temesis, urinary symptoms, chest pain, SOB. No recent illnesses or travel. No sick contacts. She had a colonoscopy done about 2-3 years ago with no abnormal findings. She has had 2 abdominal surgeries for bleeding ulcers, one open and one laprascopic. ED Course: Patient was seen in the ED around 1AM this morning. She had a CBC, CMP, and UA done, which were all essentially normal except for mild hypokalemia. CT abdomen showed a closed-loop type small bowel obstruction. NG tube was placed for decompression. Patient was admitted to hospitalist service. General surgery has been consulted. Hospitalist ROS - Review of Systems Constitutional: denies: fever, chills, sweats ENT: denies: nose discharge, nose congestion Respiratory: denies: cough, shortness of breath, hemoptysis Cardiovascular: denies: chest pain, palpitations Gastrointestinal: reports: nausea, vomiting, abdominal pain. denies: diarrhea, constipation, melena, hematochezia Genitourinary: denies: dysuria, frequency Skin: denies: rash, lesions, vilma Neurological: denies: weakness, numbness - Medication Medications: Active Medications Generic Name Dose Route Start Last Admin Trade Name Freq PRN Reason Stop Dose Admin Enoxaparin Sodium 40 mg 04/06/20 09:00 04/06/20 08:51 Enoxaparin Sodium 40 Mg/0.4 Ml Syringe SC 40 mg 0900 JOSE L Administration Famotidine 20 mg 04/06/20 09:00 04/06/20 08:52 Famotidine/Pf 20 Mg/2ml Vial SLOW IVP 20 mg Q24HR JOSE L Administration Morphine Sulfate 2 mg 04/06/20 08:43 04/06/20 08:52 Morphine 2 Mg/Ml Vial SLOW IVP 2 mg Q3H PRN Administration Moderate to Severe Pain (6-10) Ondansetron HCl 4 mg 04/06/20 08:15 04/06/20 08:52 Ondansetron Pf 4 Mg/2 Ml Vial IVP 4 mg Q6H PRN Administration Nausea/Vomiting Medication Instructions Recorded Confirmed Type Lysine [L-lysine] 500 mg PO DAILY 02/15/17 04/06/20 History Hydrochlorothiazide 25 mg PO DAILY 04/20/19 04/06/20 History Hydroxyurea [Hydrea] 2 tab PO DAILY 04/20/19 04/06/20 History Rosuvastatin Calcium 5 mg PO DAILY 04/20/19 04/06/20 History Allergies Penicillins Allergy (Verified 04/06/20 08:15) Sulfa (Sulfonamide Antibiotics) Allergy (Verified 04/06/20 08:15) Resuscitation Status - Order Detail: 04/06/20 08:15 Resuscitation Status Routine Resuscitation Status: FULL: Full Resuscitation Hospitalist History - Past Medical History Cardiac: reports: HTN, Hyperlipidemia Heme/Onc: reports: Other (Polycythemia vera) Other Medical History: Hypertension Dyslipidemia Polycythemia vera Peptic ulcer disease - Past Surgical History Other Surgical History: Surgery for peptic ulcer disease including open laparotomy and laparoscopy - Family History Other Family History: No strong family history of premature coronary artery disease stroke or cancer - Social History Other Social History: No smoking, no alcohol, no drugs, - Exam General Appearance: awake alert, ill appearing Eye: PERRL, anicteric sclera ENT: normocephalic atraumatic, dry oral mucosa Neck: supple, symmetric, no JVD, no lymphadenopathy Heart: RRR, no murmur, no gallops, no rubs, normal peripheral pulses Respiratory: CTAB, no wheezes, no rales, no ronchi Gastrointestinal: soft, non-distended, no guarding, no rigidity, tender to palpation, diminished bowl sounds Extremities: no cyanosis, no clubbing, no edema Skin: normal turgor, no lesions, no rashes Neurological: cranial nerve grossly intact, no focal deficits Musculoskeletal: normal tone, normal strength, no muscle wasting Psychiatric: normal affect, normal behavior Hospitalist Results - Labs Result Diagrams: 04/06/20 00:30 12 00:30 Lab results: WBC 6.6 thou/uL (4.8-10.8) 04/06/20 00:30 Hgb 13.3 g/dL (12.0-16.0) 04/06/20 00:30 Hct 39.1 % (36.0-47.0) 04/06/20 00:30 MCV 106.0 fL (78.0-98.0) H 04/06/20 00:30 Plt Count 364 thou/uL (130-400) 04/06/20 00:30 Neutrophils % 65.6 % (42.0-75.0) 04/06/20 00:30 Sodium 141 mmol/L (136-145) 04/06/20 00:30 Potassium 3.3 mmol/L (3.5-5.1) L 04/06/20 00:30 Chloride 101 mmol/L (98-107) 04/06/20 00:30 Carbon Dioxide 29 mmol/L (23-31) 04/06/20 00:30 BUN 27 mg/dL (9.8-20.1) H 04/06/20 00:30 Creatinine 0.91 mg/dL (0.6-1.1) 04/06/20 00:30 Glucose 147 mg/dL (80-115) H 04/06/20 00:30 Calcium 9.3 mg/dL (7.8-10.44) 04/06/20 00:30 Total Bilirubin 0.3 mg/dL (0.2-1.2) 04/06/20 00:30 AST 30 U/L (5-34) 04/06/20 00:30 ALT 28 U/L (8-55) 04/06/20 00:30 Alkaline Phosphatase 65 U/L (40-110) 04/06/20 00:30 Serum Total Protein 6.9 g/dL (6.0-8.3) 04/06/20 00:30 Albumin 4.3 g/dL (3.4-4.8) 04/06/20 00:30 Lipase 17 U/L (8-78) 04/06/20 00:30 Urine Ketones Negative mg/dL (Negative) 04/06/20 01:40 Urine Blood Negative (Negative) 04/06/20 01:40 Urine Nitrite Negative (Negative) 04/06/20 01:40 Ur Leukocyte Esterase 75 Ej/uL (Negative) A 04/06/20 01:40 Urine RBC 0-3 HPF (0-3) 04/06/20 01:40 Urine WBC 0-3 HPF (0-3) 04/06/20 01:40 Ur Squamous Epith Cells 0-3 HPF (0-3) 04/06/20 01:40 Urine Bacteria None Seen HPF (None Seen) 04/06/20 01:40 - EKG Interpretation EKG: Sinus rhythm - Radiology Interpretation CT scan - abdomen Status: image reviewed by me Additional Comment: CT abdomen pelvis consistent with closed-loop small bowel obstruction Chest x-ray Status: image reviewed by me Additional Comment: No acute cardiopulmonary process Hospitalist H&P A/P - Problem (1) Small bowel obstruction Code(s): K56.609 - UNSP INTESTNL OBST, UNSP TO PARTIAL VERSUS COMPLETE OBST Status: Acute (2) Hypokalemia Code(s): E87.6 - HYPOKALEMIA Status: Acute (3) Dyslipidemia Code(s): E78.5 - HYPERLIPIDEMIA, UNSPECIFIED Status: Chronic (4) HTN (hypertension) Code(s): I10 - ESSENTIAL (PRIMARY) HYPERTENSION Status: Chronic Qualifiers: Hypertension type: essential hypertension Qualified Code(s): I10 - Essential (primary) hypertension (5) Polycythemia vera Code(s): D45 - POLYCYTHEMIA VERA Status: Chronic (6) Macrocytosis without anemia Code(s): D75.89 - OTHER SPECIFIED DISEASES OF BLOOD AND BLOOD-FORMING ORGANS Status: Chronic Assessment and Plan: Due to hydroxyurea - Plan Plan: Small bowel obstruction, suspecting from adhesions from previous surgery. CT abdomen supports diagnosis. Will keep her NPO. NG tube in place, continue suction. Will replace electrolytes, and continue with IVF and pain control. Symp tomatic treatment for nausea and vomiting with phenergan and zofran. Small bowel follow through tomorrow, if indicated. General surgery has been consulted. Full code. DVT prophylaxis with Lovenox. Discussed plan with patient and her son, all questions answered at this time. Patient agrees to plan. Hypokalemia: Replace potassium with IVF. HTN: Use PRN hydralazine and labetalol due to NPO status. HLD: Hold for now due to NPO status. Polycythemia vera: Hold Hydroxyurea for now due to NPO status.
--- NOTE | 2020-04-06 09:36 | RAD ---
PORTABLE CHEST: HISTORY: Abdominal pain and chest pain. FINDINGS: NG tube is noted in place with tip overlying the left upper quadrant. Lungs appear clear of infiltra te. Heart and mediastinum unremarkable. Vascular markings within normal range. IMPRESSION: No acute process identified. POS: AGW
[2020-04-06] MEDS: Potassium Chloride 20 MEQ in Lactated Ringer's 1,000 ML IV SCH ×2 (09:38→18:48)
[2020-04-06 10:17] LABS: SARS-CoV-2 MS2 Positive; SARS-CoV-2 N Gene Negative; SARS-CoV-2 S Gene Negative; SARS-CoV-2 by NAA Not Detected (NotDetected); SARS-CoV-2 orf1ab Negative
[2020-04-06] MEDS ORDERED: Promethazine HCl 12.5 MG in Sodium Chloride 0.9% 50 ML IVPB PRN (10:40)
--- NOTE | 2020-04-06 11:49 | CON ---
DATE OF CONSULTATION: CHIEF COMPLAINT: Abdominal pain, nausea, vomiting. HISTORY OF PRESENT ILLNESS: This is a 69-year-old female who has had previous laparotomy for perforated ulcer, who was doing in her usual state of health until last night about 8:00 p.m. when she developed severe abdominal pain, nausea, and vomiting. She has not had this before. She denies any fever. She had a small bowel movement after coming to the floor. She says she feels a lot better now. Really no pain, but she has had morphine. She has never had a previous obstruction. PAST MEDICAL HISTORY: Polycythemia vera, hypertension, peptic ulcer disease. PAST SURGERIES: Perforated peptic ulcer, total abdominal hysterectomy, total knee replacement. MEDICATIONS: 1. Atenolol. 2. Hydrochlorothiazide. 3. Hydroxyurea. 4. Probiotics. 5. She takes something for cholesterol. FAMILY HISTORY: Parkinson's and heart disease. ALLERGIES: TO PENICILLIN AND SULFA. SOCIAL HISTORY: She is . Rare alcohol. No tobacco. FAMILY HISTORY: Hypertension. PHYSICAL EXAMINATION: VITAL SIGNS: Temperature 98, pulse 74, blood pressure 145/83. GENERAL: Thin female, lying still. She has an NG in her nose, really minimal thin yellow fluid in the canister. LUNGS: Clear. HEART: Regular rate and rhythm. ABDOMEN: Soft, nondistended. No tenderness. Well-healed surgical scar in upper midline. EXTREMITIES: Unremarkable. LABORATORY DATA: White count 6.6, H and H are 13 and 39, platelet count 364. Electrolytes are fine. CT scan shows small bowel obstruction, possibly closed-loop. ASSESSMENT: Improving small-bowel obstruction. PLAN: Continue IV hydration and NG suction. Will check KUB. If she is not open by tomorrow, then small bowel follow-through. Job ID: [id number]
[2020-04-06] MEDS ORDERED: Iopamidol-370 76% 500 ML 1 ML ONE (14:20)
--- NOTE | 2020-04-06 16:36 | RAD ---
Exam: 1 view abdomen HISTORY: Evaluate NG tube placement FINDINGS: Single view the abdomen demonstrates a nasogastric tube terminating in the left upper quadr ant, with intravenous gastric cardia. Sidehole is just beyond the GE junction. Consider advancement. IMPRESSION: NG tube as above. Consider advancement Conveyed to Dr. Hernandez via [facility] connect 04/06/2020 4:32 PM Code CR
[2020-04-07] MEDS: Ondansetron PF 4 MG/2 ML Vial IVP PRN ×2 (00:35→05:42)
[2020-04-07] MEDS: Morphine 2 MG/ML VIAL SLOW IVP PRN ×3 (00:35→08:41)
[2020-04-07 05:18] LABS: #Lymphocytes 1.3 thou/uL (1.20-3.40); #Monocytes 0.7 thou/uL (0.11-0.59); %Basophils 0.4 % (0.0-1.0); %Eosinophils 0.3 % (0.0-10.0); %Lymphocytes 11.1 % (21.0-51.0); %Monocytes 5.6 % (0.0-10.0); %Neutrophils 82.7 % (42.0-75.0); Hemoglobin 12.9 g/dL (12.0-16.0); Mean Corpuscular HGB CONC 33.5 g/dL (32.0-36.0); Mean Corpuscular Hemoglobin 35.8 pg (27.0-31.0); Mean Platelet Volume 7.4 fL (7.4-10.4); Platelet Count 355 thou/uL (130-400); RBC Distribution Width 12.2 % (11.5-14.5); Red Blood Cell (RBC) Count 3.59 mill/uL (4.20-5.40)
[2020-04-07] MEDS: Potassium Chloride 20 MEQ in Lactated Ringer's 1,000 ML IV SCH (05:30)
[2020-04-07 05:53] LABS: ALT (SGPT) 23 U/L (8-55); AST (SGOT) 23 U/L (5-34); Albumin 3.8 g/dL (3.4-4.8); Alkaline Phosphatase 57 U/L (40-110); Anion Gap 14 mmol/L (10-20); BUN (Urea Nitrogen) 16 mg/dL (9.8-20.1); Bilirubin, Total 0.7 mg/dL (0.2-1.2); Calc. Creatinine Clearance 65 mL/min (70-130); Calcium 8.8 mg/dL (7.8-10.44); Carbon Dioxide 27 mmol/L (23-31); Chloride 105 mmol/L (98-107); Globulin 2.2 g/dL (2.4-3.5); Glucose 109 mg/dL (80-115); Magnesium 1.8 mg/dL (1.6-2.6); Phosphorus 3.2 mg/dL (2.3-4.7); Potassium 3.8 mmol/L (3.5-5.1); Sodium 142 mmol/L (136-145)
[2020-04-07] MEDS: Famotidine/PF 20 mg/2ml Vial SLOW IVP SCH ×2 (07:58→21:08)
[2020-04-07] MEDS: Enoxaparin Sodium 40 MG/0.4 ML SYRINGE SC SCH (08:44)
--- NOTE | 2020-04-07 08:55 | PRG ---
DATE OF SERVICE: 04/07/2020 SUBJECTIVE: The patient is having progressive pain and dry heaves despite NG tube. She has not had anything coming out of her bottom. The initial CT scan suggests a closed-loop obstruction. OBJECTIVE: VITAL SIGNS: Temperature 98, pulse 63, and blood pressure 164/80. GENERAL: She looks sick. ABDOMEN: Tender. ASSESSMENT: Small bowel obstruction with possible closed-loop obstruction. PLAN: Exploratory laparotomy, lysis of adhesions, possible small bowel resection. CONSENT: I have discussed planned procedure as well as risk of bleeding, infection, injury to bowel and bladder, leakage of staple line. She understands and gives informed consent. Job ID: [id number]
[2020-04-07] MEDS ORDERED: Levofloxacin 500 mg/D5W 100 ml Premix Bag ONE (09:13)
[2020-04-07] MEDS ORDERED: Rocuronium Bromide 10 MG/ML (10ML VIAL) ONE (09:29)
[2020-04-07] MEDS ORDERED: Lidocaine 1% PF 5 ML VIAL ONE (09:29)
[2020-04-07] MEDS ORDERED: Glycopyrrolate 0.2 MG/ML 5 ML SYRINGE ONE (09:29)
[2020-04-07] MEDS ORDERED: Dexamethasone 20 MG/5 ML VIAL ONE (09:29)
[2020-04-07] MEDS ORDERED: Ondansetron PF 4 MG/2 ML Vial ONE (09:29)
[2020-04-07] MEDS ORDERED: PROPOFOL 200 MG/20 ML VIAL ONE (09:29)
[2020-04-07] MEDS ORDERED: Ketorolac Tromethamine 30 MG/ML VIAL ONE (09:29)
[2020-04-07] MEDS ORDERED: Phenylephrine 10 MG/ML VIAL ONE (09:59)
[2020-04-07] MEDS ORDERED: Fentanyl 100 MCG/2 ML VIAL ONE ×2 (09:59→17:46)
[2020-04-07] MEDS ORDERED: HYDROmorphone 2 MG/ML VIAL SLOW IVP PRN (10:36)
[2020-04-07] MEDS ORDERED: PACU-Morphine 4MG/ML VIAL SLOW IVP PRN (10:36)
[2020-04-07] MEDS ORDERED: Ondansetron HCl/PF 4 MG/2 ML Vial IVP PRN (10:36)
[2020-04-07] MEDS ORDERED: Zolpidem Tartrate 5 MG TAB PO PRN (10:37)
[2020-04-07] MEDS ORDERED: Naloxone HCl 0.4 mg/ml Vial IV PRN (10:37)
[2020-04-07] MEDS ORDERED: diphenhydrAMINE 50 MG/ML VIAL IVP PRN (10:37)
[2020-04-07] MEDS ORDERED: Ondansetron PF 4 MG/2 ML Vial IVP PRN ×2 (10:37→11:19)
[2020-04-07] MEDS ORDERED: diphenhydrAMINE 25 MG CAP PO PRN (10:37)
[2020-04-07] MEDS ORDERED: diphenhydrAMINE 50 MG/ML VIAL IM PRN (10:37)
[2020-04-07] MEDS ORDERED: Communication Order-Pharmacy FS SCH (10:45)
--- NOTE | 2020-04-07 11:14 | RAD ---
TWO VIEW ABDOMEN: Supine and upright views. HISTORY: Small bowel obstruction. FINDINGS: NG tube passed through the EG junction and is coiled in the epigastric fundus with tip pointing towar d the EG junction at the cardia. No free air. There is a single loop of dilated small bowel in the mid abdomen. Some scattered stool and gas in the colon. No mass effect. No abnormal calcification. IMPRESSION: Nonspecific bowel gas pattern with at least one mildly dilated loop of gas-filled small bowel noted. POS: AGW
[2020-04-07] MEDS ORDERED: hydrALAZINE 20 MG/ML VIAL SLOW IVP PRN (11:19)
[2020-04-07] MEDS ORDERED: Promethazine HCl 25 MG/ML VIAL IM PRN (11:19)
--- NOTE | 2020-04-07 12:04 | OP ---
DATE OF PROCEDURE: 04/07/2020 PREOPERATIVE DIAGNOSIS: Closed loop small bowel obstruction. PROCEDURES PERFORMED: Exploratory laparotomy, lysis of adhesions. INDICATIONS: This is a 69-year-old female, who has had both a laparotomy for a perforated ulcer as well as a hysterectomy, who was admitted with a small-bowel obstruction. CT scan suggested to be closed-loop. She did not respond to NG suction. FINDINGS: Very ischemic about 4 feet of mid small bowel secondary to a band compressing the SMA at the root of the mesentery. DESCRIPTION OF PROCEDURE: After informed consent was obtained, the patient was taken to the operating room and given general endotracheal anesthesia. She was placed in the supine position. Her abdomen was prepped and draped in usual fashion. A midline incision was performed. Subcu divided sharply. The fascia incised with a 10 blade. Lysis of adhesions was performed to free up the omentum from the anterior abdominal wall. The small bowel was very ischemic and purple, traced it down to where it had twisted at the root of the mesentery causing compression of the vasculature. This band was lysed sharply with Metzenbaum scissors, releasing it. The second and third potential spot were found more distal that were lysed, but these had not caused obstruction yet. The abdomen was thoroughly irrigated with warm saline. NG placement was confirmed. Then, the bowel was reinspected. It was pinking up. It looked viable. There was peristalsis, so elected not to resect any bowel. The omentum placed anterior. The fascia closed with a running looped #1 PDS. The subcu irrigated. Subcu reapproximated with interrupted 3-0 Vicryl and the skin closed with a running subcuticular 4-0 Rapide. Steri-Strips applied. Sterile bandage applied. The patient tolerated the procedure well, transferred to Recovery in good condition. Sponge and needle count verified correct x2. Job ID: [id number]
--- NOTE | 2020-04-07 12:27 | PDOC.HOSPP ---
- Subjective Encounter Date: 04/07/20 Encounter Time: 12:25 Subjective: Patient seen and examined. S/p laparotomy and adhesiolysis - Objective Vital Signs & Weight: Vital Signs (12 hours) Temp Pulse Resp BP Pulse Ox 04/07/20 08:00 98.0 F 63 18 164/80 H 99 04/07/20 03:36 98.8 F 75 14 133/73 97 04/07/20 00:30 98.8 F 73 16 147/66 H 95 Weight Weight 117 lb 11.629 oz I&O: 04/06/20 04/07/20 04/08/20 06:59 06:59 06:59 Intake Total 1200 Output Total 280 160 Balance -280 1040 Result Diagrams: 04/07/20 05:02 04/07/20 05:02 Hospitalist ROS - Review of Systems ENT: denies: ear pain, ear discharge, nose pain, nose discharge, nose congestion, mouth pain, mouth swelling, throat pain, throat swelling, other Respiratory: denies: cough, dry, shortness of breath, hemoptysis, SOB with excertion, pleuritic pain, sputum, wheezing, other Cardiovascular: denies: chest pain, palpitations, orthopnea, paroxysmal noc. dyspnea, edema, light headedness, other Gastrointestinal: denies: nausea, vomiting, abdominal pain, diarrhea, constipation, melena, hematochezia, other Genitourinary: denies: dysuria, frequency, incontinence, hematuria, retention, other Musculoskeletal: denies: neck pain, shoulder pain, arm pain, back pain, hand pain, leg pain, foot pain, other - Medication Medications: Active Medications Generic Name Dose Route Start Last Admin Trade Name Freq PRN Reason Stop Dose Admin Enoxaparin Sodium 40 mg 04/06/20 09:00 04/07/20 08:44 Enoxaparin Sodium 40 Mg/0.4 Ml Syringe SC Not Given 0900 JOSE L Famotidine 20 mg 04/06/20 09:00 04/07/20 07:58 Famotidine/Pf 20 Mg/2ml Vial SLOW IVP 20 mg Q24HR JOSE L Administration Potassium Chloride 20 meq/ 1,010 mls @ 100 mls/hr 04/06/20 08:30 04/07/20 05:30 Lactated Ringer's IV 1,010 mls .Q10H6M JOSE L Administration - Exam General Appearance: NAD, awake alert Eye: PERRL, anicteric sclera ENT: normocephalic atraumatic, no oropharyngeal lesions ENT - other findings: NG tube in place Neck: symmetric, no JVD Neck - other findings: Heart: RRR, no murmur, no gallops, no rubs Respiratory: CTAB, no wheezes, no rales, no ronchi Gastrointestinal: soft Gastrointestinal - other findings: Surgical site with a dressing Extremities: no cyanosis, no clubbing Skin: normal turgor, no lesions Neurological: no focal deficits Musculoskeletal: normal tone, normal strength Psychiatric: normal affect, normal behavior Hosp A/P (1) Small bowel obstruction Code(s): K56.609 - UNSP INTESTNL OBST, UNSP TO PARTIAL VERSUS COMPLETE OBST Status: Acute Plan: S/p laparotomy and adhesiolysis (2) Hypokalemia Code(s): E87.6 - HYPOKALEMIA Status: Resolved (3) Dyslipidemia Code(s): E78.5 - HYPERLIPIDEMIA, UNSPECIFIED Status: Chronic (4) HTN (hypertension) Code(s): I10 - ESSENTIAL (PRIMARY) HYPERTENSION Status: Chronic Qualifiers: Hypertension type: essential hypertension Qualified Code(s): I10 - Essential (primary) hypertension (5) Polycythemia vera Code(s): D45 - POLYCYTHEMIA VERA Status: Chronic (6) Macrocytosis without anemia Code(s): D75.89 - OTHER SPECIFIED DISEASES OF BLOOD AND BLOOD-FORMING ORGANS Status: Chronic - Plan old records reviewed/req Continue IV fluid Continue postoperative care as per surgeon Medication reviewed and continue for symptomatic and supportive care We will repeat labs tomorrow
[2020-04-07] MEDS: Sodium Chloride 0.9% 1,000 ML IV SCH ×2 (12:45→21:07)
[2020-04-07] MEDS: Famotidine 20 MG TAB PO SCH (21:08)
[2020-04-08] MEDS ORDERED: Chloraseptic Spray 180 ml Bottle PO PRN (04:27)
[2020-04-08 05:32] LABS: #Lymphocytes 0.9 thou/uL (1.20-3.40); #Monocytes 0.9 thou/uL (0.11-0.59); #Neutrophils 10.8 thou/uL (1.40-6.50); %Basophils 0.1 % (0.0-1.0); %Eosinophils 0.1 % (0.0-10.0); %Lymphocytes 7.1 % (21.0-51.0); %Monocytes 7.3 % (0.0-10.0); %Neutrophils 85.3 % (42.0-75.0); Hemoglobin 11.9 g/dL (12.0-16.0); Mean Corpuscular HGB CONC 33.9 g/dL (32.0-36.0); Mean Corpuscular Hemoglobin 36.2 pg (27.0-31.0); Mean Platelet Volume 7.7 fL (7.4-10.4); Platelet Count 325 thou/uL (130-400); RBC Distribution Width 12.3 % (11.5-14.5); Red Blood Cell (RBC) Count 3.29 mill/uL (4.20-5.40); White Blood Cell (WBC) Count 12.7 thou/uL (4.8-10.8)
[2020-04-08 05:49] LABS: Anion Gap 16 mmol/L (10-20); BUN (Urea Nitrogen) 19 mg/dL (9.8-20.1); Calc. Creatinine Clearance 68 mL/min (70-130); Calcium 7.9 mg/dL (7.8-10.44); Carbon Dioxide 21 mmol/L (23-31); Chloride 109 mmol/L (98-107); Glucose 95 mg/dL (80-115); Potassium 3.7 mmol/L (3.5-5.1); Sodium 142 mmol/L (136-145)
[2020-04-08] MEDS: Sodium Chloride 0.9% 1,000 ML IV SCH ×3 (05:58→20:26)
[2020-04-08] MEDS ORDERED: Sodium Chloride 0.9% 500 ML IV SCH (07:45)
[2020-04-08] MEDS: Enoxaparin Sodium 40 MG/0.4 ML SYRINGE SC SCH (08:17)
[2020-04-08] MEDS: Famotidine/PF 20 mg/2ml Vial SLOW IVP SCH ×3 (08:17→20:25)
[2020-04-08] MEDS: Famotidine 20 MG TAB PO SCH ×2 (08:18→20:26)
--- NOTE | 2020-04-08 10:48 | PDOC.HOSPP ---
- Subjective Encounter Date: 04/08/20 Encounter Time: 07:30 Subjective: Patient is complaining of sore throat, her voice has been changed, no fever, patient is not passing any gas, patient has NG tube with low intermittent suction, patient has [employer] pump, pain is well controlled, - Objective Vital Signs & Weight: Vital Signs (12 hours) Temp Pulse Resp BP Pulse Ox 04/08/20 07:50 99.2 F 81 16 144/85 H 98 04/08/20 04:00 99.2 F 91 17 137/82 97 04/08/20 00:00 98.4 F 77 20 120/68 97 Weight Weight 117 lb 11.629 oz I&O: 04/07/20 04/08/20 04/09/20 06:59 06:59 06:59 Intake Total 3360 Output Total 280 760 Balance -280 2600 Result Diagrams: 04/08/20 04:57 04/08/20 04:57 Hospitalist ROS - Review of Systems Constitutional: denies: fever, chills, sweats, weakness, malaise, other Eyes: denies: pain, vision change, conjunctivae inflammation, eyelid inflammation, redness, other ENT: reports: throat pain. denies: ear pain, ear discharge, nose pain, nose discharge, nose congestion, mouth pain, mouth swelling, throat swelling, other Cardiovascular: denies: chest pain, palpitations, orthopnea, paroxysmal noc. dyspnea, edema, light headedness, other Gastrointestinal: denies: nausea, vomiting, abdominal pain, diarrhea, cons tipation, melena, hematochezia, other Genitourinary: denies: dysuria, frequency, incontinence, hematuria, retention, other Musculoskeletal: denies: neck pain, shoulder pain, arm pain, back pain, hand pain, leg pain, foot pain, other - Medication Medications: Active Medications Generic Name Dose Route Start Last Admin Trade Name Freq PRN Reason Stop Dose Admin Enoxaparin Sodium 40 mg 04/06/20 09:00 04/08/20 08:17 Enoxaparin Sodium 40 Mg/0.4 Ml Syringe SC 40 mg 0900 JOSE L Administration Famotidine 20 mg 04/06/20 09:00 04/08/20 08:18 Famotidine/Pf 20 Mg/2ml Vial SLOW IVP Not Given Q24HR [facility] Famotidine 20 mg 04/07/20 21:00 04/08/20 08:18 Famotidine 20 Mg Tab PO Not Given Q12HR JOSE L Famotidine 20 mg 04/07/20 21:00 04/08/20 08:17 Famotidine/Pf 20 Mg/2ml Vial SLOW IVP 20 mg Q12HR JOSE L Administration Sodium Chloride 1,000 mls @ 120 mls/hr 04/07/20 11:30 04/08/20 05:58 Normal Saline 0.9% IV 1,000 mls .Q8H20M JOSE L Administration Levofloxacin 500 mg/ Device 100 mls @ 100 mls/hr 04/08/20 10:00 04/08/20 10:13 IVPB 04/08/20 10:59 100 mls Q24H JOSE L Administration Ondansetron HCl 4 mg 04/07/20 10:37 04/07/20 18:34 Ondansetron Pf 4 Mg/2 Ml Vial IVP 4 mg Q6H PRN Administration Nausea/Vomiting Phenol 0 ml 04/08/20 04:27 04/08/20 08:16 Chloraseptic [place] 180 Ml Bottle PO 2 spr PRN PRN Administration SORE THROAT Throat Lozenges 1 judy 04/06/20 08:15 04/08/20 00:15 Cepastat Lozenges 1 Judy PO 1 judy Q2H PRN Administration Sore Throat - Exam General Appearance: NAD, awake alert Eye: PERRL, anicteric sclera ENT: normocephalic atraumatic, no oropharyngeal lesions ENT - other findings: No pharyngeal erythema, NG tube with low intermittent suction Neck: no JVD, no thyromegaly Heart: RRR, no murmur, no gallops, no rubs Respiratory: no wheezes, no rales, no ronchi Gastrointestinal: soft Gastrointestinal - other findings: Surgical site is clean and healthy Extremities: no clubbing, no edema Skin: normal turgor, no lesions Neurological: no focal deficits Musculoskeletal: normal tone, normal strength Psychiatric: normal affect, normal behavior Hosp A/P (1) Small bowel obstruction Code(s): K56.609 - UNSP INTESTNL OBST, UNSP TO PARTIAL VERSUS COMPLETE OBST Status: Acute Plan: S/p exploratory laparotomy, lysis of adhesion, postoperative day 2, (2) Hypokalemia Code(s): E87.6 - HYPOKALEMIA Status: Resolved (3) Dyslipidemia Code(s): E78.5 - HYPERLIPIDEMIA, UNSPECIFIED Status: Chronic (4) HTN (hypertension) Code(s): I10 - ESSENTIAL (PRIMARY) HYPERTENSION Status: Chronic Qualifiers: Hypertension type: essential hypertension Qualified Code(s): I10 - Essential (primary) hypertension (5) Polycythemia vera Code(s): D45 - POLYCYTHEMIA VERA Status: Chronic (6) Macrocytosis without anemia Code(s): D75.89 - OTHER SPECIFIED DISEASES OF BLOOD AND BLOOD-FORMING ORGANS Status: Chronic (7) Postoperative ileus Code(s): K91.89 - OTH POSTPROCEDURAL COMPLICATIONS AND DISORDERS OF DGSTV SYS; K56.7 - ILEUS, UNSPECIFIED Status: Acute - Plan old records reviewed/req, plan discussed w/ family, harrison catheter, incentive spirometry, out of bed/ambulate, DVT proph w/lovenox Continue IV fluid Continue postoperative care as per surgeon Medication reviewed and continue for symptomatic and supportive care Discussed with the patient's son, Try to ambulate her as tolerated Incentive spirometry Continue NG tube with low intermittent suction for postoperative ileus Consider Harrison removal
--- NOTE | 2020-04-08 14:09 | PRG ---
DATE OF SERVICE: 04/08/2020 SUBJECTIVE: The patient reports that she really has minimal pain. No nausea or vomiting. Her main complaint is the NG tube is causing a lot of throat pain. Nurse reports only about 100 out her NG over the last 12 hours. OBJECTIVE: VITAL SIGNS: On examination; T-max 99.6, pulse 73, and blood pressure 136/73. GENERAL: She is awake and alert. ABDOMEN: Soft, nondistended, and nontender. She has had a little bit not very much urine, but it is improving since I gave her a bolus. LABORATORY DATA: Her white count is 12.7, H and H 11 and 35, and platelet count 325. Electrolytes are fine. PLAN: Discontinue NG. Discontinue [place]. Ambulate. Job ID: [id number]
[2020-04-08] MEDS: HYDROmorphone 10 mg/100 ml CADD IVPB PRN (20:26)
[2020-04-09] MEDS: Sodium Chloride 0.9% 1,000 ML IV SCH (04:09)
[2020-04-09 05:50] LABS: #Eosinphils 0.1 thou/uL (0.0-0.7); #Lymphocytes 1.1 thou/uL (1.20-3.40); #Monocytes 0.7 thou/uL (0.11-0.59); #Neutrophils 6.8 thou/uL (1.40-6.50); %Basophils 0.2 % (0.0-1.0); %Eosinophils 1.2 % (0.0-10.0); %Lymphocytes 12.6 % (21.0-51.0); %Monocytes 7.5 % (0.0-10.0); %Neutrophils 78.5 % (42.0-75.0); Hemoglobin 10.5 g/dL (12.0-16.0); Mean Corpuscular HGB CONC 33.7 g/dL (32.0-36.0); Mean Corpuscular Hemoglobin 36.3 pg (27.0-31.0); Mean Platelet Volume 7.6 fL (7.4-10.4); Platelet Count 280 thou/uL (130-400); RBC Distribution Width 12.3 % (11.5-14.5); White Blood Cell (WBC) Count 8.6 thou/uL (4.8-10.8)
[2020-04-09 06:12] LABS: Anion Gap 14 mmol/L (10-20); BUN (Urea Nitrogen) 17 mg/dL (9.8-20.1); Calc. Creatinine Clearance 80 mL/min (70-130); Calcium 7.6 mg/dL (7.8-10.44); Carbon Dioxide 22 mmol/L (23-31); Chloride 109 mmol/L (98-107); Glucose 76 mg/dL (80-115); Potassium 3.3 mmol/L (3.5-5.1); Sodium 142 mmol/L (136-145)
--- NOTE | 2020-04-09 07:55 | PRG ---
DATE OF SERVICE: 04/09/2020 SUBJECTIVE: The patient is feeling a lot better, very little pain. She has had occasional episodes of nausea. No flatus, she had. OBJECTIVE: VITAL SIGNS: Temperature 98.7, pulse 77, blood pressure 134/76. GENERAL: She is awake, alert. She does not appear to be in any distress. LUNGS: Clear. ABDOMEN: Soft, nondistended, and nontender. LABORATORY DATA: Potassium is a little low. Her white count is 8.6, H and H 10 and 31, platelet count 280. ASSESSMENT: Improving. PLAN: Sips of clear liquids, ambulate. Job ID: [id number]
[2020-04-09] MEDS: Enoxaparin Sodium 40 MG/0.4 ML SYRINGE SC SCH (08:09)
[2020-04-09] MEDS: Famotidine 20 MG TAB PO SCH ×2 (08:09→20:34)
[2020-04-09] MEDS: Famotidine/PF 20 mg/2ml Vial SLOW IVP SCH ×3 (08:10→22:56)
[2020-04-09] MEDS: 1/2 NS w/KCL 20 mEq 1,000 ML IV SCH ×3 (09:46→22:56)
--- NOTE | 2020-04-09 10:11 | PDOC.HOSPP ---
- Subjective Encounter Date: 04/09/20 Encounter Time: 08:00 Subjective: Patient seen and examined bedside today, patient has bowel sound, NG tube was discontinued, patient is currently on ice chips, she does not have any abdominal pain, she is ambulating in her room, no fever, has mild sore throat - Objective Vital Signs & Weight: Vital Signs (12 hours) Temp Pulse Resp BP Pulse Ox 04/09/20 08:10 96 04/09/20 07:40 98.6 F 63 14 123/72 96 04/09/20 03:47 98.7 F 77 16 134/76 96 04/08/20 23:45 98.7 F 73 16 135/76 96 Weight Weight 117 lb 11.629 oz I&O: 04/08/20 04/09/20 04/10/20 06:59 06:59 06:59 Intake Total 3360 1540 200 Output Total 760 560 Balance 2600 980 200 Result Diagrams: 04/09/20 05:16 04/09/20 05:16 Hospitalist ROS - Review of Systems Constitutional: denies: fever, chills, sweats, weakness, malaise, other Eyes: denies: pain, vision change, conjunctivae inflammation, eyelid inflammation, redness, other ENT: reports: throat pain. denies: ear pain, ear discharge, nose pain, nose discharge, nose congestion, mouth pain, mouth swelling, throat swelling, other Respiratory: denies: cough, dry, shortness of breath, hemoptysis, SOB with excertion, pleuritic pain, sputum, wheezing, other Cardiovascular: denies: chest pain, palpitations, orthopnea, paroxysmal noc. dyspnea, edema, light headedness, other Gastrointestinal: denies: nausea, vomiting, abdominal pain, diarrhea, constipation, melena, hematochezia, other Genitourinary: denies: dysuria, frequency, incontinence, hematuria, retention, other Musculoskeletal: denies: neck pain, shoulder pain, arm pain, back pain, hand pain, leg pain, foot pain, other - Medication Medications: Active Medications Generic Name Dose Route Start Last Admin Trade Name Freq PRN Reason Stop Dose Admin Enoxaparin Sodium 40 mg 04/06/20 09:00 04/09/20 08:09 Enoxaparin Sodium 40 Mg/0.4 Ml Syringe SC 40 mg 0900 JOSE L Administration Famotidine 20 mg 04/06/20 09:00 04/09/20 08:10 Famotidine/Pf 20 Mg/2ml Vial SLOW IVP 20 mg Q24HR JOSE L Administration Famotidine 20 mg 04/07/20 21:00 04/09/20 08:09 Famotidine 20 Mg Tab PO Not Given Q12HR JOSE L Famotidine 20 mg 04/07/20 21:00 04/09/20 08:10 Famotidine/Pf 20 Mg/2ml Vial SLOW IVP Not Given Q12HR JOSE L Hydromorphone HCl 0 mg 04/07/20 10:37 04/08/20 20:26 Hydromorphone 10 Mg/100 Ml Cadd IVPB 10 mg INF PRN Administration Pain Potassium Chloride/Sodium Chloride 1,000 mls @ 125 mls/hr 04/09/20 08:45 04/09/20 09:46 1/2 Ns W/Kcl 20 Meq IV 1,000 mls .Q8H JOSE L Administration Ondansetron HCl 4 mg 04/07/20 10:37 04/07/20 18:34 Ondansetron Pf 4 Mg/2 Ml Vial IVP 4 mg Q6H PRN Administration Nausea/Vomiting Phenol 0 ml 04/08/20 04:27 04/08/20 08:16 Chloraseptic [place] 180 Ml Bottle PO 2 spr PRN PRN Administration SORE THROAT Throat Lozenges 1 judy 04/06/20 08:15 04/08/20 00:15 Cepastat Lozenges 1 Judy PO 1 judy Q2H PRN Administration Sore Throat - Exam General Appearance: NAD, awake alert Eye: PERRL, anicteric sclera ENT: normocephalic atraumatic, no oropharyngeal lesions Neck: supple, symmetric, no JVD, no thyromegaly Heart: RRR, no murmur, no gallops, no rubs Respiratory: no wheezes, no rales, no ronchi Gastrointestinal: soft, non-tender, non-distended, normal bowel sounds Gastrointestinal - other findings: Surgical site is clean and healthy Extremities: no cyanosis, no clubbing, no edema Skin: normal turgor, no lesions Neurological: no focal deficits Musculoskeletal: normal tone, normal strength Psychiatric: normal affect, normal behavior, A&O x 3 Hosp A/P (1) Small bowel obstruction Code(s): K56.609 - UNSP INTESTNL OBST, UNSP TO PARTIAL VERSUS COMPLETE OBST Status: Resolved Plan: S/p laparotomy and adhesiolysis (2) Hypokalemia Code(s): E87.6 - HYPOKALEMIA Status: Acute (3) Dyslipidemia Code(s): E78.5 - HYPERLIPIDEMIA, UNSPECIFIED Status: Chronic (4) HTN (hypertension) Code(s): I10 - ESSENTIAL (PRIMARY) HYPERTENSION Status: Chronic Qualifiers: Hypertension type: essential hypertension Qualified Code(s): I10 - Essential (primary) hypertension (5) Polycythemia vera Code(s): D45 - POLYCYTHEMIA VERA Status: Chronic (6) Macrocytosis without anemia Code(s): D75.89 - OTHER SPECIFIED DISEASES OF BLOOD AND BLOOD-FORMING ORGANS Status: Chronic (7) Postoperative ileus Code(s): K91.89 - OTH POSTPROCEDURAL COMPLICATIONS AND DISORDERS OF DGSTV SYS; K56.7 - ILEUS, UNSPECIFIED Status: Acute - Plan old records reviewed/req We will change IV fluid to half-normal saline NS with KCl at 125 mill per hour Patient has overall clinical improvement and has bowel sounds, will start diet and will defer that to general surgery I have restarted her home medication Today we will replace potassium with IV fluid We will consult PT OT for ambulation as well If she tolerates her diet then expecting her discharge in next 24 to 48 hours. Medication reviewed and continue provide symptomatic and supportive care
[2020-04-09] MEDS ORDERED: Benzonatate 100 MG CAP PO PRN (10:12)
[2020-04-09] MEDS ORDERED: Calcium Carbonate 500 MG ChewTAB PO PRN (10:12)
[2020-04-09] MEDS ORDERED: HYDROcodone/Acetaminophen 5/325 mg Tablet PO PRN (10:12)
[2020-04-09] MEDS ORDERED: Diabetic Tussin 200 MG/10 ML UDCUP PO PRN (10:12)
[2020-04-09] MEDS ORDERED: Senokot S 8.6-50 MG TAB PO PRN (10:12)
[2020-04-10] MEDS: HYDROmorphone 10 mg/100 ml CADD IVPB PRN (04:06)
[2020-04-10] MEDS: 1/2 NS w/KCL 20 mEq 1,000 ML IV SCH ×3 (04:06→23:37)
[2020-04-10 06:42] LABS: Anion Gap 14 mmol/L (10-20); BUN (Urea Nitrogen) 15 mg/dL (9.8-20.1); Calc. Creatinine Clearance 77 mL/min (70-130); Calcium 7.6 mg/dL (7.8-10.44); Carbon Dioxide 20 mmol/L (23-31); Chloride 108 mmol/L (98-107); Glucose 60 mg/dL (80-115); Magnesium 1.9 mg/dL (1.6-2.6); Phosphorus 2.4 mg/dL (2.3-4.7); Potassium 3.4 mmol/L (3.5-5.1); Sodium 139 mmol/L (136-145)
[2020-04-10] MEDS ORDERED: D5 1/2 NS w/40 mEq KCL 1,000 ML IV SCH (08:30)
[2020-04-10] MEDS ORDERED: Magnesium 2 GM/50 ML 2 GM in Premix Bag 1 BAG IVPB SCH (08:45)
[2020-04-10] MEDS ORDERED: Hydroxyurea 500 MG CAP PO SCH (09:00)
[2020-04-10] MEDS: Hydroxyurea 500 MG CAP PO SCH (09:09)
[2020-04-10] MEDS: Famotidine 20 MG TAB PO SCH ×2 (09:10→20:17)
[2020-04-10] MEDS: Lysine 500 MG TAB PO SCH (09:10)
[2020-04-10] MEDS: Hydrochlorothiazide 25 MG TAB PO SCH (09:10)
[2020-04-10] MEDS: Enoxaparin Sodium 40 MG/0.4 ML SYRINGE SC SCH (09:10)
[2020-04-10] MEDS: Famotidine/PF 20 mg/2ml Vial SLOW IVP SCH ×2 (09:10→20:17)
[2020-04-10] MEDS: Rosuvastatin 5 MG TAB PO SCH (09:13)
--- NOTE | 2020-04-10 09:26 | PRG ---
DATE OF SERVICE: 04/10/2020 SUBJECTIVE: She had some low blood sugar earlier, but that responded to oral hyperglycemics. She is doing a lot better now. She still has some moderate pain. She is passing gas. No nausea or vomiting. OBJECTIVE: VITAL SIGNS: Her temperature is 98.4, pulse 69, blood pressure 149/82. GENERAL: She is awake, alert. ABDOMEN: Soft, nondistended, nontender. LABORATORY DATA: Her white count is normal. H and H of 10 and 31. Her glucose was low at 62, but it is better and it is 140 now. ASSESSMENT: Status post small bowel ischemia, improved. PLAN: Full liquid diet. Job ID: [id number]
--- NOTE | 2020-04-10 20:12 | PDOC.HOSPP ---
- Subjective Encounter Date: 04/10/20 Encounter Time: 14:30 Subjective: Patient seen and examined for small bowel obstruction. Abdominal pain improving. Had bowel movement. Denies significant nausea. No chest pain, shortness of breath or palpitations reported - Objective Vital Signs & Weight: Vital Signs (12 hours) Temp Pulse Resp BP Pulse Ox 04/10/20 11:31 98.8 F 61 16 132/79 98 04/10/20 09:15 98 04/10/20 08:25 98.8 F 73 16 136/80 98 Weight Weight 117 lb 11.629 oz I&O: 04/09/20 04/10/20 04/11/20 06:59 06:59 06:59 Intake Total 1540 2660 1640 Output Total 560 400 Balance 980 2260 1640 Result Diagrams: 04/09/20 05:16 04/10/20 05:47 Additional Labs: Accuchecks 04/10/20 04/10/20 09:00 07:10 POC Glucose 135 H 62 L Radiology Reviewed by me: Yes (CT abdomen reviewed) Hospitalist ROS - Review of Systems Cardiovascular: denies: chest pain, palpitations, orthopnea, paroxysmal noc. dyspnea, edema, light headedness, other Gastrointestinal: denies: nausea, vomiting, abdominal pain, diarrhea, constipation, melena, hematochezia, other - Medication Medications: Active Medications Generic Name Dose Route Start Last Admin Trade Name Freq PRN Reason Stop Dose Admin Enoxaparin Sodium 40 mg 04/06/20 09:00 04/10/20 09:10 Enoxaparin Sodium 40 Mg/0.4 Ml Syringe SC 40 mg 09 JOSE L Administration Famotidine 20 mg 04/07/20 21:00 04/10/20 09:10 Famotidine 20 Mg Tab PO Not Given Q12HR JOSE L Famotidine 20 mg 04/07/20 21:00 04/10/20 09:10 Famotidine/Pf 20 Mg/2ml Vial SLOW IVP 20 mg Q12HR JOSE L Administration Hydrochlorothiazide 25 mg 04/10/20 09:00 04/10/20 09:10 Hydrochlorothiazide 25 Mg Tab PO 25 mg DAILY JOSE L Administration Hydromorphone HCl 0 mg 04/07/20 10:37 04/10/20 04:06 Hydromorphone 10 Mg/100 Ml Cadd IVPB 10 mg INF PRN Administration Pain Hydroxyurea 1,000 mg 04/10/20 09:00 04/10/20 09:09 Hydroxyurea 500 Mg Cap PO 1,000 mg DAILY JOSE L Administration Potassium Chloride/Sodium Chloride 1,000 mls @ 75 mls/hr 04/10/20 10:15 04/10/20 10:51 1/2 Ns W/Kcl 20 Meq IV Not Given .[id number] JOSE L Lysine 500 mg 04/10/20 09:00 04/10/20 09:10 Lysine 500 Mg Tab PO Not Given DAILY JOSE L Ondansetron HCl 4 mg 04/07/20 10:37 04/07/20 18:34 Ondansetron Pf 4 Mg/2 Ml Vial IVP 4 mg Q6H PRN Administration Nausea/Vomiting Phenol 0 ml 04/08/20 04:27 04/08/20 08:16 Chloraseptic [place] 180 Ml Bottle PO 2 spr PRN PRN Administration SORE THROAT Rosuvastatin Calcium 5 mg 04/10/20 09:00 04/10/20 09:13 Rosuvastatin 5 Mg Tab PO Not Given DAILY JOSE L Senna/Docusate Sodium 2 tab 04/09/20 10:12 04/09/20 20:34 Senokot S 8.6-50 Mg Tab PO 2 tab BID PRN Administration Constipation Throat Lozenges 1 judy 04/06/20 08:15 04/08/20 00:15 Cepastat Lozenges 1 Judy PO 1 judy Q2H PRN Administration Sore Throat - Exam General Appearance: NAD Heart: RRR, no gallops Respiratory: no wheezes, no ronchi Gastrointestinal: soft, no guarding, no rigidity Extremities: no cyanosis Neurological: no new deficit Hosp A/P - Plan DVT proph w/SCDs Small bowel obstruction with bowel ischemia S/p exploratory laparotomy and lysis of adhesions on 04/07 Hypertension Hypoglycemiaresolved hyperlipidemia History of polycythemia vera Peptic ulcer disease Postoperative eye ileus Hypokalemia Hypomagnesemia Plan: Continue full liquid diet. Continue IV fluids. Replace potassium and magnesium. Continue GI prophylaxis. Continue hydroxyurea, statins and other medications as above. Recheck labs in a.m. Continue other medications as above
[2020-04-11] MEDS: 1/2 NS w/KCL 20 mEq 1,000 ML IV SCH ×2 (04:50→13:43)
[2020-04-11 06:04] LABS: #Eosinphils 0.3 thou/uL (0.0-0.7); #Lymphocytes 1.1 thou/uL (1.20-3.40); #Monocytes 0.6 thou/uL (0.11-0.59); #Neutrophils 4.5 thou/uL (1.40-6.50); %Basophils 0.7 % (0.0-1.0); %Eosinophils 4.4 % (0.0-10.0); %Lymphocytes 17.3 % (21.0-51.0); %Neutrophils 68.7 % (42.0-75.0); Hemoglobin 11.4 g/dL (12.0-16.0); Mean Corpuscular HGB CONC 34.6 g/dL (32.0-36.0); Mean Corpuscular Hemoglobin 36.8 pg (27.0-31.0); Mean Platelet Volume 7.5 fL (7.4-10.4); Platelet Count 354 thou/uL (130-400); White Blood Cell (WBC) Count 6.5 thou/uL (4.8-10.8)
[2020-04-11 06:27] LABS: Anion Gap 8 mmol/L (10-20); BUN (Urea Nitrogen) 5 mg/dL (9.8-20.1); Calc. Creatinine Clearance 79 mL/min (70-130); Calcium 7.7 mg/dL (7.8-10.44); Carbon Dioxide 30 mmol/L (23-31); Chloride 106 mmol/L (98-107); Glucose 94 mg/dL (80-115); Potassium 3.4 mmol/L (3.5-5.1); Sodium 141 mmol/L (136-145)
[2020-04-11] MEDS: Enoxaparin Sodium 40 MG/0.4 ML SYRINGE SC SCH (08:44)
[2020-04-11] MEDS: Famotidine 20 MG TAB PO SCH (08:44)
[2020-04-11] MEDS: Hydroxyurea 500 MG CAP PO SCH (08:44)
[2020-04-11] MEDS: Hydrochlorothiazide 25 MG TAB PO SCH (08:44)
[2020-04-11] MEDS: Potassium Chloride 10 MEQ TAB PO SCH ×2 (08:44→13:42)
[2020-04-11] MEDS: Lysine 500 MG TAB PO SCH (08:45)
[2020-04-11] MEDS: Rosuvastatin 5 MG TAB PO SCH (08:45)
[2020-04-11] MEDS: Famotidine/PF 20 mg/2ml Vial SLOW IVP SCH (08:45)
[2020-04-11 11:28] VITALS: BP 136/79; TEMP 99
--- NOTE | 2020-04-11 13:27 | DIS ---
DATE OF ADMISSION: 04/06/2020 DATE OF DISCHARGE: 04/11/2020 DISCHARGE DIAGNOSIS: Small bowel obstruction with closed loop obstruction and severe ischemia. PROCEDURES DURING ADMISSION: Exploratory laparotomy, lysis of adhesions. HOSPITAL COURSE: The patient was admitted, treated with NG suction, IV hydration, continued not to get better. She was taken to the operating room, where she was found to have very ischemic midgut. This was related to a band adhesion right at the mesenteric takeoff compressing the vessels. This was lysed and the bowel pinked back up. Postoperatively, she has done well. Pain is minimal. She is tolerating full liquids. She is discharged home on hydrocodone and Zofran. She will follow up with me in 2 weeks and she is also having bowel movements. Job ID: [id number]
--- NOTE | 2020-04-11 17:56 | PDOC.DS.DS ---
Provider - Provider Date of Admission: 04/06/20 05:21 Date of Discharge: 04/11/20 Admitting Provider: Dwaine Melchor DO Consultations: General Surgery Primary Care Physician: Jann Vaz MD Course - Hospital Course Hospital Course: Patient is 69-year-old female with peptic ulcer disease and polycythemia vera presented to the emergency room on 04/06 with lower abdominal discomfort of 1 day duration without significant nausea or vomiting. CT scan of the abdomen was consistent with small bowel obstruction. Patient was admitted to the surgical floor and general surgery was consulted. NG tube was placed. She was kept n.p.o. and was started on IV hydration. Patient failed conservative management and continued to have significant pain. On 04/07 patient underwent exploratory laparotomy along with lysis of edition. The laparotomy showed very ischemic about 4 feet of mid small bowel secondary to band compressing the SMA at the root. Postoperatively she. Patient has been cleared by general surgery for discharge well. NG tube was later discontinued. She tolerated clear liquid that has been transitioned to full liquid. He also had some electrolyte abnormalities which has been replaced. Patient has been cleared by general s urgery for discharge. Plan: Small bowel obstruction with bowel ischemia S/p exploratory laparotomy and lysis of adhesions on 04/07 Hypertension Hypoglycemiaresolved hyperlipidemia History of polycythemia vera Peptic ulcer disease Postoperative eye ileus Hypokalemia Hypomagnesemia Resuscitation Status: 04/06/20 08:15 Resuscitation Status Routine Resuscitation Status: FULL: Full Resuscitation - Labs Lab Results: 04/11/20 05:36 04/11/20 05:36 Abnormal Lab Results - Last 48 hrs 04/10/20 05:47: Potassium 3.4 L, Chloride 108 H, Carbon Dioxide 20 L, Creatinine 0.57 L, Calcium 7.6 L 04/11/20 05:36: Potassium 3.4 L, Anion Gap 8 L, BUN 5 L, Creatinine 0.56 L, Calcium 7.7 L 04/11/20 05:36: RBC 3.10 L, Hgb 11.4 L, Hct 32.9 L, MCV 106.0 H, MCH 36.8 H, Lymphocytes % 17.3 L, Lymphocytes # 1.1 L, Monocytes # 0.6 H - Physical Exam Vitals: Vital Signs (12 hours) Temp Pulse Resp BP Pulse Ox 04/11/20 11:25 99 F 73 12 136/79 96 12/10/20 08:45 96 04/11/20 07:38 98.9 F 74 12 131/80 96 Weight Weight 117 lb 11.629 oz Physical Exam: The patient was seen and examined on the day of discharge. Plan - Discharge Medications Prescriptions: Ondansetron [Zofran ODT] 4 mg PO Q4HR PRN 5 Days #10 tab PRN Reason: Nausea/Vomiting HYDROcodone/Acetaminophen [[place] 5-325 Tablet] 1 each PO Q6H PRN 7 Days #30 tablet PRN Reason: Pain Home Medications: Medication Instructions Recorded Confirmed Type Lysine [L-lysine] 500 mg PO DAILY 02/15/17 04/06/20 History Hydrochlorothiazide 25 mg PO DAILY 04/20/19 04/06/20 History Hydroxyurea [Hydrea] 2 tab PO DAILY 04/20/19 04/06/20 History Rosuvastatin Calcium 5 mg PO DAILY 04/20/19 04/06/20 History HYDROcodone/Acetaminophen [[place] 1 each PO Q6H PRN 7 Days #30 tablet 04/11/20 Rx 5-325 Tablet] Ipratropium/Albuterol Sulfate 3 ml NEB Q4H PRN neb 04/11/20 Rx [DuoNeb] Labetalol HCl [Normodyne] 20 mg SLOW IVP Q4H PRN vial 04/11/20 Rx Ondansetron [Zofran ODT] 4 mg PO Q4HR PRN 5 Days #10 tab 04/11/20 Rx Rosuvastatin [Crestor] 5 mg PO DAILY tab 04/11/20 Rx Sennosides/Docusate Sodium 2 tab PO BID PRN tab 04/11/20 Rx [Senokot S] Allergies: promethazine [From Phenergan] Allergy (Unknown, Verified 04/06/20 12:11) Patient states she thinks she is allergic to phenergan. She states she thinks she has had a past reaction, but unsure what happened. Penicillins Allergy (Verified 04/06/20 08:15) Sulfa (Sulfonamide Antibiotics) Allergy (Verified 04/06/20 08:15) - Discharge Instructions Discharge Instructions:: FOCUS: Transition from Acute Care after Discharge GOAL: Successful transition to care in the community YOUR TASKS: (1) review all information outlined in your discharge packet (2) follow any instructions outlined in your discharge packet (3) contact your primary care provider if you have questions or need additional assistance - Follow up Plan Referrals: Jann Vaz MD [Primary Care Provider] - Carlos Hernandez Jr, MD [Active] - 14 Days Disposition: HOME Quality - Care Measures CORE MEASURES:: N/A
== END 2020-04-11 16:20 | disposition home or self-care (01) | DRG 336 ==
LOC: ERS 00:13 → SURG A 05:21
PROVIDERS: ADMIT Family Medicine; ATTEND Internal Medicine
PROC: 0D9670Z Drainage of Stomach with Drainage Device, Via Natural or Artificial Opening (ICD-10-PCS; 2020-04-06)
PROC: 0DNU0ZZ Release Omentum, Open Approach (ICD-10-PCS; principal; 2020-04-07)
DX: K56.50 Intestinal adhesions [bands], unspecified as to partial versus complete obstruction (principal); K91.89 Other postprocedural complications and disorders of digestive system; K55.9 Vascular disorder of intestine, unspecified; E78.00 Pure hypercholesterolemia, unspecified; I10 Essential (primary) hypertension; E87.6 Hypokalemia; D45 Polycythemia vera; D75.89 Other specified diseases of blood and blood-forming organs; K27.9 Peptic ulcer, site unspecified, unspecified as acute or chronic, without hemorrhage or perforation; Z96.659 Presence of unspecified artificial knee joint; Z20.828 Contact with and (suspected) exposure to other viral communicable diseases; R19.2 Visible peristalsis; K56.7 Ileus, unspecified; E16.2 Hypoglycemia, unspecified; E83.42 Hypomagnesemia; Z88.0 Allergy status to penicillin; Z88.2 Allergy status to sulfonamides; Z88.8 Allergy status to other drugs, medicaments and biological substances; Z90.710 Acquired absence of both cervix and uterus; Z79.899 Other long term (current) drug therapy
CPT/HCPCS: 36415; 36416; 71045; 74018; 74019; 74177; 80048; 80053; 81003; 81015; 83690; 83735; 84100; 85025; 87635; 93005; 96374; 96375; J1100; J1650; J1885; J1956; J2250; J2270; J2370; J2405; J2550; J2704; J3010; J3475; J3480; J7120; Q9967; S0028; U0003

== ENCOUNTER 2021-01-30 09:16 | Outpatient (CLI) | payer MEDICARE, OTHER | END 2021-01-30 09:17 | disposition home or self-care (01) | LOC: BICMAMMO 09:16 | PROVIDERS: ATTEND Family Medicine | DX: Z12.31 Encounter for screening mammogram for malignant neoplasm of breast (principal); N64.89 Other specified disorders of breast | CPT/HCPCS: 77063; 77067 ==

== ENCOUNTER 2021-02-14 09:18 | Outpatient (CLI) | payer MEDICARE, OTHER | END 2021-02-14 09:19 | disposition home or self-care (01) | LOC: BICMAMMO 09:18 | PROVIDERS: ATTEND Family Medicine | DX: N63.15 Unspecified lump in the right breast, overlapping quadrants (principal); Z98.890 Other specified postprocedural states | CPT/HCPCS: 19083; 76642; 77065; G0279 ==

== ENCOUNTER 2021-03-17 12:49 | Outpatient (CLI) | payer MEDICARE, OTHER ==
[2021-03-17 15:10] LABS: #Basophils 0.1 10x3/uL (0.0-0.2); #Eosinphils 0.1 10x3/uL (0.0-0.5); #Monocytes 0.5 10x3/uL (0.0-1.1); #Neutrophils 4.5 10x3/uL (1.5-8.4); %Eosinophils 1.5 % (0.0-6.0); %Lymphocytes 24.6 % (18.0-47.0); %Monocytes 7.2 % (0.0-10.0); %Neutrophils 65.3 % (40.0-75.0); Hemoglobin 13.1 g/dL (12.0-15.5); Mean Corpuscular HGB CONC 33.5 g/dL (32.0-36.0); Mean Corpuscular Hemoglobin 34.8 pg (27.0-33.0); Mean Platelet Volume 10.2 fl (7.4-10.4); Platelet Count 388 10x3/uL (150-450); RBC Distribution Width 12.8 % (11.5-14.5); Red Blood Cell (RBC) Count 3.76 10x6/uL (3.90-5.03); White Blood Cell (WBC) Count 6.8 10x3/uL (3.5-10.5)
[2021-03-17 15:28] LABS: Anion Gap 14 mmol/L (10-20); BUN (Urea Nitrogen) 14 mg/dL (9.8-20.1); Calc. Creatinine Clearance 0 mL/min (70-130); Calcium 9.6 mg/dL (7.8-10.44); Carbon Dioxide 28 mmol/L (23-31); Chloride 102 mmol/L (98-107); Glucose 75 mg/dL (83-110); Potassium 3.7 mmol/L (3.5-5.1); Sodium 140 mmol/L (136-145)
[2021-03-18 13:28] LABS: SARS-CoV-2 PCR by NAA Not Detected (NotDetected)
== END 2021-03-17 12:50 | disposition home or self-care (01) ==
LOC: LABBT 12:49
PROVIDERS: ATTEND Specialist
DX: Z01.818 Encounter for other preprocedural examination (principal); C50.911 Malignant neoplasm of unspecified site of right female breast; Z20.822 Contact with and (suspected) exposure to COVID-19
CPT/HCPCS: 80048; 85025; 93005; U0003; U0005; 93010

== ENCOUNTER 2021-03-20 08:50 | Day surgery (SDC) | payer MEDICARE, OTHER ==
[2021-03-19 12:59] VITALS: BMI 21.7
[2021-03-20] MEDS ORDERED: Levofloxacin 500 mg/D5W 100 ml Premix Bag ONE (10:16)
[2021-03-20] MEDS ORDERED: Ketorolac Tromethamine 30 MG/ML VIAL ONE (10:16)
[2021-03-20] MEDS ORDERED: Acetaminophen 500 MG TAB ONE (10:16)
[2021-03-20] MEDS ORDERED: Midazolam HCl 2 mg/2 ml Vial ONE (11:35)
[2021-03-20] MEDS ORDERED: Fentanyl 100 MCG/2 ML VIAL ONE (11:35)
[2021-03-20] MEDS ORDERED: Isosulfan Blue 50 MG/5 ML VIAL ONE (11:37)
[2021-03-20] MEDS ORDERED: EPINEPHrine 1 MG/ML AMP ONE (11:37)
[2021-03-20] MEDS ORDERED: Lidocaine 2% PF 5 ML VIAL ONE (11:37)
[2021-03-20] MEDS ORDERED: Bupivacaine 0.25% HCL 30 ML VIAL ONE ×2 (11:37→11:42)
[2021-03-20] MEDS ORDERED: Lidocaine 1% w/Epinephrine 1:100K 20 ML VIAL ONE (11:42)
[2021-03-20] MEDS ORDERED: PHENYLEPHRINE-NS 100 MCG/ML 10 ML SYRINGE ONE (12:04)
[2021-03-20] MEDS ORDERED: Lidocaine 1% PF 5 ML VIAL ONE (12:04)
[2021-03-20] MEDS ORDERED: ePHEDrine 50 MG/ML VIAL ONE (12:04)
[2021-03-20] MEDS ORDERED: Ondansetron PF 4 MG/2 ML Vial ONE ×2 (12:04→13:53)
[2021-03-20] MEDS ORDERED: PROPOFOL 200 MG/20 ML VIAL ONE (12:04)
[2021-03-20] MEDS ORDERED: Dexamethasone 20 MG/5 ML VIAL ONE (12:04)
[2021-03-20] MEDS ORDERED: diphenhydrAMINE 50 MG/ML VIAL ONE (14:22)
== END 2021-03-20 16:15 | disposition home or self-care (01) ==
LOC: NM 08:50
PROVIDERS: ATTEND Specialist
PROC: 0HBT0ZZ Excision of Right Breast, Open Approach (ICD-10-PCS; principal; 2021-03-20)
PROC: 07B50ZX Excision of Right Axillary Lymphatic, Open Approach, Diagnostic (ICD-10-PCS; 2021-03-20)
DX: C50.811 Malignant neoplasm of overlapping sites of right female breast (principal); I10 Essential (primary) hypertension; M81.0 Age-related osteoporosis without current pathological fracture; Z17.0 Estrogen receptor positive status [ER+]; Z86.16 Personal history of COVID-19; Z79.83 Long term (current) use of bisphosphonates; Z79.899 Other long term (current) drug therapy; Z88.0 Allergy status to penicillin; Z88.2 Allergy status to sulfonamides; Z88.8 Allergy status to other drugs, medicaments and biological substances
CPT/HCPCS: 19301; 38525; 38900; 76098; 78195; A9541; Q9968; 88307; 88342; J0171; J1100; J1200; J1885; J1956; J2001; J2250; J2405; J2704; J3010; J3490; S0020

== ENCOUNTER 2022-03-05 10:08 | Outpatient (CLI) | payer MEDICARE, OTHER | END 2022-03-05 10:09 | disposition home or self-care (01) | LOC: BICMAMMO 10:08 | PROVIDERS: ATTEND Specialist | DX: Z08 Encounter for follow-up examination after completed treatment for malignant neoplasm (principal); Z85.3 Personal history of malignant neoplasm of breast | CPT/HCPCS: 77066; G0279 ==

== ENCOUNTER 2023-03-16 13:07 | Outpatient (CLI) | payer MEDICARE, OTHER | END 2023-03-16 13:08 | disposition home or self-care (01) | LOC: BICMAMMO 13:07 | PROVIDERS: ATTEND Specialist | DX: Z08 Encounter for follow-up examination after completed treatment for malignant neoplasm (principal); Z85.3 Personal history of malignant neoplasm of breast | CPT/HCPCS: 77066; G0279 ==

== ENCOUNTER 2024-03-20 08:39 | Outpatient (CLI) | payer MEDICARE, OTHER | END 2024-03-20 08:40 | disposition home or self-care (01) | LOC: BICMAMMO 08:39 | PROVIDERS: ATTEND Specialist | DX: Z08 Encounter for follow-up examination after completed treatment for malignant neoplasm (principal); Z85.3 Personal history of malignant neoplasm of breast; Z98.890 Other specified postprocedural states; Z91.89 Other specified personal risk factors, not elsewhere classified | CPT/HCPCS: 77066; G0279 ==

== ENCOUNTER 2025-04-10 10:57 | Outpatient (CLI) | payer MEDICARE, OTHER | END 2025-04-10 10:58 | disposition home or self-care (01) | LOC: BICMAMMO 10:57 | PROVIDERS: ATTEND Specialist | DX: Z12.31 Encounter for screening mammogram for malignant neoplasm of breast (principal); Z85.3 Personal history of malignant neoplasm of breast; Z98.890 Other specified postprocedural states | CPT/HCPCS: 77063; 77067 ==